=== PATIENT | male | born 1960 | race Caucasian/White ===

== ENCOUNTER 2017-07-26 06:57 | Emergency (ER) | payer MEDICAID ==
[2017-07-26 07:03] VITALS: BP 120/78; PULSE 88; RESP 18; TEMP 97.3; O2SAT 97
--- NOTE | 2017-07-26 07:15 | EDPHY ---
H & P Stated Complaint: ruq abd pain HPI/ROS: CHIEF COMPLAINT: Right upper quadrant pain HISTORY OF PRESENT ILLNESS: This patient is a homeless 57 y/o male with history of alcoholic cirrhosis complaining of right upper quadrant abdominal pain worsening over the last two days. He has had similar pain in the past due to alcohol binges and cirrhosis. He states he drinks about five pints of alcohol per day, and his last drink around 30 minutes prior to arrival. He states he is interested in stopping drinking. His pain is particularly bad today, and he has been vomiting. He has been treated for trench foot in the past, and endorses a recurrence of this. He denies cough, fever, diarrhea, chest pain, shortness of breath, or other associated symptoms. REVIEW OF SYSTEMS: A 10 point review of systems was performed and is negative with the exception of the elements mentioned in the history of present illness. - Personal History Current Tetanus/Diphtheria Vaccine: Yes Tetanus Vaccine Date: 2012 - Medical/Surgical History PMH: 1. Hepatitis C 2. Alcoholic cirrhosis 3. Alcohol abuse 4. Pancreatitis 5. BPH 6. Bipolar disorder 7. History of blood clots Hx Asthma: No Hx Chronic Respiratory Disease: No Hx Diabetes: No Hx Cardiac Disease: No Hx Renal Disease: No Hx Cirrhosis: Yes Hx Alcoholism: Yes Hx HIV/AIDS: No Hx Splenectomy or Spleen Trauma: No Other PMH: hep c, polyps removed, bipolar, CHI, ETOH, lupus, urinary & bowel incontinence, neck pain, hx blood clots, pancreatitis, BPH - Social History Smoking Status: Never smoked Additional Social History: Transient. Daily alcohol use. Nonsmoker. - Physical Exam Exam: General Appearance: Alert, no distress Eyes: Pupils equal and round, no conjunctival pallor or injection ENT, Mouth: Mucous membranes moist Neck: Normal inspection Respiratory: Lungs are clear to auscultation Cardiovascular: Regular rate and rhythm Gastrointestinal: Right upper quadrant tenderness. Abdomen is soft. Neurological: A&O, nonfocal, normal gait Skin: Warm and dry, no rash Extremities: Toes erythematous bilaterally, a few scabbed over lesions. Capillary refill normal. No cellulitis or necrosis. Psychiatric: Mood and affect normal Constitutional: Initial Vital Signs Temperature (C) 36.3 C 07/26/17 07:00 Heart Rate 88 07/26/17 07:00 Respiratory Rate 18 07/26/17 07:00 Blood Pressure 120/78 07/26/17 07:00 O2 Sat (%) 97 07/26/17 07:00 O2 Delivery Mode Room Air Allergies/Adverse Reactions: morphine Allergy (Verified 07/26/17 06:59) iv contrast dye Allergy (Uncoded 03/06/14 02:54) pnuemonia vaccine Allergy (Uncoded 03/06/14 02:54) Home Medications: Medication Instructions Recorded Flomax 0.4 MG (RX) 02/06/14 Pancreaze 4.2 02/06/14 Naproxen 03/05/14 Percocet 5/325 (RX) 03/05/14 Medical Decision Making ED Course/Re-evaluation: 57 y/o male with history of alcoholic cirrhosis presents with two day history of worsening right upper quadrant abdominal pain and associated vomiting. Likely secondary to recent alcohol binge and cirrhosis. Exam reveals right upper quadrant tenderness. IV established. Plan for labs including CBC, BMP, liver, lipase, and EtOH. Administered 1L IV NS. Old medical record reviewed. Right upper quadrant ultrasound in October 2013 revealed gallbladder sludge, no cholelithiasis. 915: Reassessed. The patient is comfortably sleeping and is easily aroused. Laboratory results discussed with the patient. Abdominal exam remains benign. Patient encouraged to stop drinking alcohol. Toradol 15 mg IV given. The patient has expressed interest in alcohol recovery. Plan to discharge to the [facility] in good condition. Differential Diagnosis: Differential diagnosis includes though it is not limited to appendicitis, cholecystitis, diverticulitis, pyelonephritis, bowel perforation, small bowel obstruction. - Data Points Laboratory Results: Laboratory Results 07/26/17 07:46 07/26/17 07:46 07/26/17 07/26/17 07:46 07:46 WBC 7.76 10^3/uL 10^3/uL (3.80-9.50) RBC 4.44 10^6/uL 10^6/uL (4.40-6.38) Hgb 14.9 g/dL g/dL (13.7-17.5) Hct 40.0 % % (40.0-51.0) MCV 90.1 fL fL (81.5-99.8) MCH 33.6 pg pg (27.9-34.1) MCHC 37.3 g/dL H g/dL (32.4-36.7) RDW 13.6 % % (11.5-15.2) Plt Count 101 10^3/uL L 10^3/uL (150-400) MPV 9.1 fL fL (8.7-11.7) Neut % (Auto) 70.3 % % (39.3-74.2) Lymph % (Auto) 22.0 % % (15.0-45.0) [place] % (Auto) 6.7 % % (4.5-13.0) Eos % (Auto) 0.0 % L % (0.6-7.6) Baso % (Auto) 0.6 % % (0.3-1.7) Nucleat RBC Rel Count 0.0 % % (0.0-0.2) Absolute Neuts (auto) 5.45 10^3/uL 10^3/uL (1.70-6.50) Absolute Lymphs (auto) 1.71 10^3/uL 10^3/uL (1.00-3.00) Absolute Monos (auto) 0.52 10^3/uL 10^3/uL (0.30-0.80) Absolute Eos (auto) 0.00 10^3/uL L 10^3/uL (0.03-0.40) Absolute Basos (auto) 0.05 10^3/uL 10^3/uL (0.02-0.10) Absolute Nucleated RBC 0.00 10^3/uL 10^3/uL (0-0.01) Immature Gran % 0.4 % % (0.0-1.1) Immature Gran # 0.03 10^3/uL 10^3/uL (0.00-0.10) Sodium 142 mEq/L mEq/L (134-144) Potassium 3.4 mEq/L L mEq/L (3.5-5.2) Chloride 104 mEq/L mEq/L (97-110) Carbon Dioxide 21 mEq/l L mEq/l (22-31) Anion Gap 17 mEq/L H mEq/L (8-16) BUN 10 mg/dL mg/dL (7-23) Creatinine 0.7 mg/dL mg/dL (0.7-1.3) Estimated GFR > 60 Glucose 84 mg/dL mg/dL (70-100) Calcium 9.0 mg/dL mg/dL (8.5-10.4) Total Bilirubin 3.7 mg/dL H mg/dL (0.1-1.4) Conjugated Bilirubin 0.7 mg/dL H mg/dL (0.0-0.5) Unconjugated Bilirubin 3.0 mg/dL H mg/dL (0.0-1.1) AST 78 IU/L H IU/L (17-59) ALT 67 IU/L IU/L (21-72) Alkaline Phosphatase 93 IU/L IU/L (38-126) Total Protein 7.9 g/dL g/dL (6.3-8.2) Albumin 4.2 g/dL g/dL (3.5-5.0) Lipase 376 IU/L H IU/L (23-300) Ethyl Alcohol 259 mg/dL H mg/dL (0-10) Medications Given: Discontinued Medications Sodium Chloride (Ns) 1,000 mls @ 0 mls/hr IV EDNOW ONE; Wide Open PRN Reason: Protocol Stop: 07/26/17 07:34 Last Admin: 07/26/17 07:50 Dose: 1,000 mls Ketorolac Tromethamine (Toradol) 15 mg IVP EDNOW ONE Stop: 07/26/17 09:18 Last Admin: 07/26/17 09:22 Dose: 15 mg Departure - Departure Disposition: Home, Routine, Self-Care Clinical Impression: Alcoholism Abdominal pain Qualifiers: Abdominal location: right upper quadrant Qualified Code(s): R10.11 - Right upper quadrant pain Condition: Good Instructions: Abuse of Alcohol (ED), Abdominal Pain (ED) Additional Instructions: 1. Proceed to the [facility] for assistance in recovery from alcoholism. 2. Remember to keep your feet dry as much as possible. 3. Follow up with your primary care provider for continued evaluation. [facility] has walk-in appointments for the homeless at the following days/locations. No appointment is needed. Tuesday 8-10am @ [facility] 11AM-1PM @ [facility] Tuesday 8-10:30AM @ [facility] Tuesday 8-10 AM @ [facility] 2-4PM @ [facility] Tuesday 8-10AM @ [facility] 4. Return to the emergency department for worsening pain, uncontrollable vomiting, fever, or other worsening of condition. Referrals: [facility] 24 Hours [Outside] - As per Instructions [facility],. [Clinic] - As per Instructions Report Scribed for: Thao Rocha Report Scribed by: Luly Dixon Date of Report: 07/26/17 Time of Report: 07:14 Physician Review and Approval Statement: 07/26/17 07:14 Portions of this note were transcribed by a medical operations supervisor. I personally performed a history, physical exam, medical decision making, and confirmed accuracy of information the transcribed note.
[2017-07-26] MEDS ORDERED: NS 1,000 ML IV ONE (07:33)
[2017-07-26 07:59] LABS: % IMMATURE GRANULYOCYTES 0.4 % (0.0-1.1); ABSOLUTE IMMATURE GRANULOCYTES 0.03 10^3/uL (0.00-0.10); ADD DIFF? NO; ADD MORPH? NO; ADD SCAN? NO; ATYPICAL LYMPHOCYTE FLAG 0 (0-99); FRAGMENT RBC FLAG 0 (0-99); HEMOGLOBIN 14.9 g/dL (13.7-17.5); LEFT SHIFT FLG 0 (0-99); LIPEMIA HEMOLYSIS FLAG 90 (0-99); MEAN CELL HEMOGLOBIN 33.6 pg (27.9-34.1); MEAN CELL HEMOGLOBIN CONCENTR. 37.3 g/dL (32.4-36.7); MEAN CELL VOLUME 90.1 fL (81.5-99.8); MEAN PLATELET VOLUME 9.1 fL (8.7-11.7); PLATELET CLUMPS FLAG 20 (0-99); PLATELET COUNT 101 10^3/uL (150-400); RED BLOOD CELL COUNT 4.44 10^6/uL (4.40-6.38); RED CELL DISTRIBUTION WIDTH 13.6 % (11.5-15.2)
[2017-07-26 08:49] LABS: ALANINE AMINOTRANSFERASE 67 IU/L (21-72); ALBUMIN 4.2 g/dL (3.5-5.0); ALKALINE PHOSPHATASE 93 IU/L (38-126); ANION GAP 17 mEq/L (8-16); ASPARTATE AMINOTRANSFERASE 78 IU/L (17-59); BILIRUBIN,TOTAL 3.7 mg/dL (0.1-1.4); BILIRUBIN-CONJUGATED 0.7 mg/dL (0.0-0.5); CARBON DIOXIDE 21 mEq/l (22-31); CHLORIDE 104 mEq/L (97-110); CREATININE 0.7 mg/dL (0.7-1.3); ETHANOL SERUM 259 mg/dL (0-10); GLOMERULAR FILTRATION RATE > 60; GLUCOSE 84 mg/dL (70-100); POTASSIUM 3.4 mEq/L (3.5-5.2); SODIUM 142 mEq/L (134-144); TOTAL PROTEIN 7.9 g/dL (6.3-8.2)
[2017-07-26] MEDS ORDERED: KETOROLAC 15 MG/1 ML SDV IVP ONE (09:17)
== END 2017-07-26 09:30 | disposition home or self-care (01) ==
DX: R10.11 Right upper quadrant pain (principal); F10.20 Alcohol dependence, uncomplicated; E86.9 Volume depletion, unspecified
CPT/HCPCS: 96374; G0480; J1885

== ENCOUNTER 2018-06-18 01:00 | Emergency (ER) | payer MEDICAID ==
--- NOTE | 2018-06-18 01:20 | EDPHY ---
H & P Time Seen by Provider: 06/18/18 01:15 HPI/ROS: CHIEF COMPLAINT: " I have got scabies" HISTORY OF PRESENT ILLNESS: 58-year-old homeless male complaining of itching lesions, likely scabies. Present for several weeks. Denies pain. PHYSICAL EXAM (Prior to examination, patient consented to physical exam, hands were washed and my usual and customary physical exam procedures followed) 1) GENERAL: Well-developed, well-nourished, alert and oriented. Appears to be in no acute distress. 2) HEAD: Normocephalic 3) HEENT: sclera anicteric 4) LUNGS: Breathing comfortably. 5) SKIN: Multiple excoriated lesions all with no signs of super infection. Smoking Status: Never smoked Allergies/Adverse Reactions: morphine Allergy (Verified 07/26/17 06:59) iv contrast dye Allergy (Uncoded 03/06/14 02:54) pnuemonia vaccine Allergy (Uncoded 03/06/14 02:54) Home Medications: Medication Instructions Recorded Pantoprazole Sodium [Protonix 40mg 40 mg PO DAILY #30 tab 05/20/18 (*)] Permethrin 5% [Elimite 5%] 60 elissa TP ONCE #1 cream 06/18/18 MDM/Departure - [facility] ED Course/Re-evaluation: Patient has significant skin lesions consistent with scabies. No evidence of Mauritian scabies. No evidence of bacterial super infection. Plan will be discharge with permethrin prescription was given to him. My usual customary scabies prescriptions precautions and instructions provided. I saw this patient independently based on established practice protocols. Care of patient under supervision of secondary supervising physician Dr Bryant . - Depart Disposition: Home, Routine, Self-Care Clinical Impression: Scabies Condition: Good Instructions: Scabies (ED) Prescriptions: Permethrin 5% [Elimite 5%] 60 elissa TP ONCE #1 cream Referrals: [facility],. [Clinic] - As per Instructions
[2018-06-18] MEDS ORDERED: PERMETHRIN 5% 60 GM CREAM TP ONE (01:32)
[2018-06-18 01:49] VITALS: BP 132/74
== END 2018-06-18 01:49 | disposition home or self-care (01) ==
DX: B86 Scabies (principal); Z59.0 Homelessness

== ENCOUNTER 2018-06-23 12:42 | Emergency (ER) | payer MEDICAID ==
--- NOTE | 2018-06-23 13:12 | CPEKG ---
Test Reason : OPEN Blood Pressure : / mmHG Vent. Rate : 067 BPM Atrial Rate : 067 BPM P-R Int : 164 ms QRS Dur : 110 ms QT Int : 452 ms P-R-T Axes : 000 074 050 degrees QTc Int : 478 ms Sinus rhythm Borderline prolonged QT interval Confirmed by Selvin Roldan ([id number]) on 06/23/2018 1:11:39 PM Referred By: Confirmed By:Selvin Roldan
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
[2018-06-23 14:02] LABS: PLATELET COUNT 76 10^3/uL (150-400)
[2018-06-23] MEDS ORDERED: methylPREDNISolone SOD SUCC 125 MG/2 ML VIAL IVP ONE (15:18)
[2018-06-23] MEDS ORDERED: IOPAMIDOL (ISOVUE 370) 100 ML BTL IV ONE (16:28)
[2018-06-23 17:59] VITALS: BP 123/76
== END 2018-06-23 18:21 | disposition home or self-care (01) ==
LOC: EDUNIT#
DX: R07.9 Chest pain, unspecified (principal); V18.1XXA Pedal cycle passenger injured in noncollision transport accident in nontraffic accident, initial encounter; F10.129 Alcohol abuse with intoxication, unspecified
CPT/HCPCS: 84484-PO; 96374; J1200; J2930; Q9967

== ENCOUNTER 2018-06-29 23:59 | Emergency (ER) | payer MEDICAID ==
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
[2018-06-30] MEDS ORDERED: CHLORDIAZEPOXIDE 25MG PREPK#6 BTL TAKEHOME ONE (07:10)
[2018-06-30 07:21] VITALS: BP 136/86
== END 2018-06-30 07:19 | disposition home or self-care (01) ==
LOC: EDBD → EDUNIT#
DX: F10.929 Alcohol use, unspecified with intoxication, unspecified (principal); S09.90XA Unspecified injury of head, initial encounter; Z59.0 Homelessness

== ENCOUNTER 2018-08-03 02:02 | Emergency (ER) | payer MEDICAID ==
--- NOTE | 2018-08-03 02:04 | EDPHY ---
H & P Time Seen by Provider: 08/03/18 02:04 HPI/ROS: HPI CHIEF COMPLAINT: Alcohol intoxication, abdominal pain HISTORY OF PRESENT ILLNESS: 58-year-old male, homeless with daily alcohol use and alcoholism, presents emergency room highly intoxicated with alcohol with abdominal pain. The patient was picked up by EMS and was going to go to the detox center for acute alcohol intoxication and being outside however he started complaining abdominal pain was brought to the emergency room. Upon arrival to the emergency room he is intoxicated with alcohol and does complain of right upper quadrant abdominal pain. He denies any chest pain shortness of breath. He denies vomiting or diarrhea. Denies fever. Patient reports to me drank 5 pt of alcohol. Past Medical History: History of alcoholism daily alcohol use and homelessness. Past Surgical History: No recent surgery Social History: Daily alcohol use. Family History: Noncontributory. ROS REVIEW OF SYSTEMS: 10 Systems were reviewed and negative with the exception of the elements mentioned in the history of present illness. Exam Constitutional intoxicated, smells of alcohol, triage nursing summary reviewed , vital signs reviewed, awake/alert. Eyes normal conjunctivae and sclera, EOMI, PERRLA. Horizontal beating nystagmus consistent acute alcohol intoxication HENT normal inspection, atraumatic, moist mucus membranes, no epistaxis, neck supple/ no meningismus, no raccoon eyes. Respiratory clear to auscultation bilaterally, normal breath sounds, no respiratory distress, no wheezing. Cardiovascular rate normal, regular rhythm, no murmur, no edema, distal pulses normal. Gastrointestinal mild tender palpation epigastric right upper quadrant, no rebound, no guarding, normal bowel sounds, no distension, no pulsatile mass. Genitourinary no CVA tenderness. Musculoskeletal no midline vertebral tenderness, full range of motion, no calf swelling, no tenderness of extremities, no meningismus, good pulses, neurovascularly intact. Skin pink, warm, & dry, no rash, skin atraumatic. Neurologic awake, alert and oriented x 3, AAOx3, moves all 4 extremities equally, motor intact, sensory intact, CN II-XII intact, normal cerebellar, normal vision, slurring his speech Psychiatric normal mood/affect. Heme/Lymph/Immune no lymphadenopathy. Differential diagnosis includes but is not limited to and in no particular order : Alcohol intoxication, alcohol-induced pancreatitis, alcohol-induced hepatitis , alcohol-induced gastritis Bowel obstruction, appendicitis, gallbladder disease, diverticulitis, colitis, enteritis, perforated viscus, gastritis, GERD , esophagitis, urinary tract infection, pyelonephritis, kidney stones Medical Decision Making: Plan for this patient IV establishment IV fluid bolus , check serum alcohol level, abdominal labs, lipase, LFTs. Re-evaluate. Re-evaluation: Lipase 493. Serum alcohol level 334. 0526: Patient re-evaluated this time. Abdomen remained soft nontender. He is not vomiting. He has been sleeping here for multiple hours. His alcohol level was noted to be 334. He is now sober. He is ambulatory. Stable gait. He is safe for discharge. Lab work reviewed. Lipase was slightly elevated. LFTs were slightly elevated consistent with acute alcoholism. Highly recommend the patient refrain from drinking alcohol. Return precautions discussed with me understands return emergency room if develops worsening abdominal pain, fever, vomiting. He feels comfortable discharge planning. Abdomen soft. Not vomiting. Sober. Source: Patient, EMS - Personal History Tetanus Vaccine Date: 2012 - Medical/Surgical History Hx Asthma: No Hx Chronic Respiratory Disease: No Hx Diabetes: No Hx Cardiac Disease: No Hx Renal Disease: No Hx Cirrhosis: Yes Hx Alcoholism: Yes Hx HIV/AIDS: No Hx Splenectomy or Spleen Trauma: No Other PMH: hep c, polyps removed, bipolar, CHI, ETOH, lupus, urinary & bowel incontinence, neck pain, hx blood clots, pancreatitis, BPH, Scabies - Social History Smoking Status: Never smoked Constitutional: Initial Vital Signs Temperature (C) 36.6 C 08/03/18 02:05 Heart Rate 83 08/03/18 02:05 Respiratory Rate 18 08/03/18 02:05 Blood Pressure 129/85 H 08/03/18 02:05 O2 Sat (%) 95 08/03/18 02:05 O2 Delivery Mode Room Air Allergies/Adverse Reactions: Iodinated Contrast- Oral and IV Dye Allergy (Verified 08/03/18 02:04) morphine Allergy (Verified 08/03/18 02:04) pneumococcal vaccine Allergy (Verified 08/03/18 02:04) Home Medications: Medication Instructions Recorded Pantoprazole Sodium [Protonix 40mg 40 mg PO DAILY #30 tab 05/20/18 (*)] Permethrin 5% [Elimite 5%] 60 elissa TP ONCE #1 cream 06/18/18 Medical Decision Making - Data Points Laboratory Results: Laboratory Results 08/03/18 02:10 08/03/18 02:10 08/03/18 08/03/18 02:10 02:10 WBC 4.14 10^3/uL 10^3/uL (3.80-9.50) RBC 3.85 10^6/uL L 10^6/uL (4.40-6.38) Hgb 13.0 g/dL L g/dL (13.7-17.5) Hct 36.8 % L % (40.0-51.0) MCV 95.6 fL fL (81.5-99.8) MCH 33.8 pg pg (27.9-34.1) MCHC 35.3 g/dL g/dL (32.4-36.7) RDW 12.7 % % (11.5-15.2) Plt Count 132 10^3/uL L 10^3/uL (150-400) MPV 8.2 fL L fL (8.7-11.7) Neut % (Auto) 41.6 % % (39.3-74.2) Lymph % (Auto) 43.7 % % (15.0-45.0) [place] % (Auto) 12.8 % % (4.5-13.0) Eos % (Auto) 0.0 % L % (0.6-7.6) Baso % (Auto) 1.4 % % (0.3-1.7) Nucleat RBC Rel Count 0.0 % % (0.0-0.2) Absolute Neuts (auto) 1.72 10^3/uL 10^3/uL (1.70-6.50) Absolute Lymphs (auto) 1.81 10^3/uL 10^3/uL (1.00-3.00) Absolute Monos (auto) 0.53 10^3/uL 10^3/uL (0.30-0.80) Absolute Eos (auto) 0.00 10^3/uL L 10^3/uL (0.03-0.40) Absolute Basos (auto) 0.06 10^3/uL 10^3/uL (0.02-0.10) Absolute Nucleated RBC 0.00 10^3/uL 10^3/uL (0-0.01) Immature Gran % 0.5 % % (0.0-1.1) Immature Gran # 0.02 10^3/uL 10^3/uL (0.00-0.10) Sodium 145 mEq/L mEq/L (135-145) Potassium 3.6 mEq/L mEq/L (3.3-5.0) Chloride 108 mEq/L mEq/L (97-110) Carbon Dioxide 24 mEq/l mEq/l (22-31) Anion Gap 13 mEq/L mEq/L (6-14) BUN 10 mg/dL mg/dL (7-23) Creatinine 0.8 mg/dL mg/dL (0.7-1.3) Estimated GFR > 60 Glucose 114 mg/dL H mg/dL (70-100) Calcium 9.1 mg/dL mg/dL (8.5-10.4) Total Bilirubin 1.0 mg/dL mg/dL (0.1-1.4) Conjugated Bilirubin 0.3 mg/dL mg/dL (0.0-0.5) Unconjugated Bilirubin 0.7 mg/dL mg/dL (0.0-1.1) AST 194 IU/L H IU/L (17-59) ALT 128 IU/L H IU/L (21-72) Alkaline Phosphatase 104 IU/L IU/L (38-126) Total Protein 7.6 g/dL g/dL (6.3-8.2) Albumin 3.9 g/dL g/dL (3.5-5.0) Lipase 493 IU/L H IU/L (23-300) Ethyl Alcohol 334 mg/dL H mg/dL (0-10) Medications Given: Discontinued Medications Sodium Chloride (Ns) 1,000 mls @ 0 mls/hr IV EDNOW ONE; Wide Open PRN Reason: Protocol Stop: 08/03/18 02:07 Last Admin: 08/03/18 02:12 Dose: 1,000 mls Departure - Departure Disposition: Home, Routine, Self-Care Clinical Impression: Alcohol intoxication Qualifiers: Complication of substance-induced condition: uncomplicated Qualified Code(s): F10.920 - Alcohol use, unspecified with intoxication, uncomplicated Condition: Good Instructions: Alcohol Intoxication (ED), Abuse of Alcohol (ED) Referrals: NONE *PRIMARY CARE P,. [Primary Care Provider] - As per Instructions
[2018-08-03] MEDS ORDERED: NS 1,000 ML IV ONE (02:06)
[2018-08-03 02:18] LABS: PLATELET COUNT 132 10^3/uL (150-400)
[2018-08-03 05:47] VITALS: BP 132/73
== END 2018-08-03 05:47 | disposition home or self-care (01) ==
LOC: EDUNIT#
DX: F10.920 Alcohol use, unspecified with intoxication, uncomplicated (principal); R10.9 Unspecified abdominal pain; E86.9 Volume depletion, unspecified
CPT/HCPCS: G0480

== ENCOUNTER 2018-08-07 04:35 | Emergency (ER) | payer MEDICAID ==
[2018-08-07] MEDS ORDERED: NS 1,000 ML IV ONE (04:43)
[2018-08-07] MEDS ORDERED: FAMOTIDINE 20 MG/2 ML SDV IVP ONE (04:43)
--- NOTE | 2018-08-07 04:46 | EDPHY ---
H & P Stated Complaint: abd pain Time Seen by Provider: 08/07/18 04:44 HPI/ROS: Chief Complaint: Abdominal pain HPI: 58-year-old homeless alcoholic male presenting complaining of upper epigastric and right upper abdominal pain. Patient states the pain began couple of hours ago. He did admits to drinking at least 2 pt of hard liquor. It is similar to pain he has had the past. He was seen here 4 days ago with similar symptoms. He does have a history of cirrhosis, pancreatitis, and lupus. Denies chest pain. Denies fevers or chills. No vomiting. No dark black bowel movements. ROS: 10 systems were reviewed and were negative except those elements noted in the HPI. PMH: Alcoholic hepatitis, pancreatitis, lupus Social History: Positive smoking, positive daily heavy alcohol, homeless Family History: non-contributory Physical Exam: Gen: Awake, Alert, No Distress HEENT: Nose: no rhinorrhea Eyes: PERRLA, EOMI Mouth: Moist mucosa Neck: Supple, no JVD Chest: nontender, lungs clear to auscultation Heart: S1, S2 normal, no murmur Abd: Soft, mild epigastric tenderness, no guarding, no peritoneal signs Back: no CVA tenderness, no midline tenderness Ext: no edema, non-tender Skin: no rash Neuro: CN II-XII intact, Sensation grossly intact, Strength 5/5 in bilateral upper and lower extremities - Personal History Current Tetanus/Diphtheria Vaccine: Yes Current Tetanus Diphtheria and Acellular Pertussis (TDAP): Yes Tetanus Vaccine Date: 2012 - Medical/Surgical History Hx Asthma: No Hx Chronic Respiratory Disease: No Hx Diabetes: No Hx Cardiac Disease: No Hx Renal Disease: No Hx Cirrhosis: Yes Hx Alcoholism: Yes Hx HIV/AIDS: No Hx Splenectomy or Spleen Trauma: No Other PMH: hep c, polyps removed, bipolar, CHI, ETOH, lupus, urinary & bowel incontinence, neck pain, hx blood clots, pancreatitis, BPH, Scabies - Social History Smoking Status: Never smoked Constitutional: Initial Vital Signs Temperature (C) 36.5 C 08/07/18 04:35 Heart Rate 74 08/07/18 04:35 Respiratory Rate 16 08/07/18 04:35 Blood Pressure 150/99 H 08/07/18 04:35 O2 Sat (%) 97 08/07/18 04:35 O2 Delivery Mode Room Air Allergies/Adverse Reactions: Iodinated Contrast- Oral and IV Dye Allergy (Verified 08/07/18 04:43) morphine Allergy (Verified 08/07/18 04:43) pneumococcal vaccine Allergy (Verified 08/07/18 04:43) Home Medications: Medication Instructions Recorded Pantoprazole Sodium [Protonix 40mg 40 mg PO DAILY #30 tab 05/20/18 (*)] Permethrin 5% [Elimite 5%] 60 elissa TP ONCE #1 cream 06/18/18 Abx 08/07/18 Librium 10 mg (RX) 08/07/18 Medical Decision Making ED Course/Re-evaluation: 58-year-old male presents with recurrent upper abdominal pain. History of cirrhosis and pancreatitis. His abdomen is soft and benign. His lipase is mildly elevated. His LFTs are consistent with his chronic alcohol abuse. He has no peritoneal signs. Certainly no surgical process. His white count is normal. Patient was given Pepcid and a GI cocktail. I have counseled him that the way to make his pain status. Is to stop drinking alcohol. Will refer him to [facility]. - Data Points Laboratory Results: Laboratory Results 08/07/18 04:45 08/07/18 04:45 08/07/18 08/07/18 04:45 04:45 WBC 3.93 10^3/uL 10^3/uL (3.80-9.50) RBC 4.12 10^6/uL L 10^6/uL (4.40-6.38) Hgb 13.9 g/dL g/dL (13.7-17.5) Hct 38.7 % L % (40.0-51.0) MCV 93.9 fL fL (81.5-99.8) MCH 33.7 pg pg (27.9-34.1) MCHC 35.9 g/dL g/dL (32.4-36.7) RDW 12.2 % % (11.5-15.2) Plt Count 187 10^3/uL 10^3/uL (150-400) MPV 8.9 fL fL (8.7-11.7) Neut % (Auto) Pending Lymph % (Auto) Pending Burt % (Auto) Pending Eos % (Auto) Pending Baso % (Auto) Pending Nucleat RBC Rel Count Pending Absolute Neuts (auto) Pending Absolute Lymphs (auto) Pending Absolute Monos (auto) Pending Absolute Eos (auto) Pending Absolute Basos (auto) Pending Absolute Nucleated RBC Pending Immature Gran % Pending Immature Gran # Pending Platelet Estimate Pending Sodium 143 mEq/L mEq/L (135-145) Potassium 4.7 mEq/L mEq/L (3.3-5.0) Chloride 106 mEq/L mEq/L (97-110) Carbon Dioxide 24 mEq/l mEq/l (22-31) Anion Gap 13 mEq/L mEq/L (6-14) BUN 17 mg/dL mg/dL (7-23) Creatinine 1.1 mg/dL mg/dL (0.7-1.3) Estimated GFR > 60 Glucose 82 mg/dL mg/dL (70-100) Calcium 9.4 mg/dL mg/dL (8.5-10.4) Total Bilirubin 1.4 mg/dL mg/dL (0.1-1.4) AST 151 IU/L H IU/L (17-59) ALT 102 IU/L H IU/L (21-72) Alkaline Phosphatase 104 IU/L IU/L (38-126) Total Protein 8.4 g/dL H g/dL (6.3-8.2) Albumin 4.3 g/dL g/dL (3.5-5.0) Lipase 501 IU/L H IU/L (23-300) Medications Given: Discontinued Medications Famotidine (Pepcid) 20 mg IVP EDNOW ONE Stop: 08/07/18 04:44 Last Admin: 08/07/18 04:49 Dose: 20 mg Sodium Chloride (Ns) 1,000 mls @ 0 mls/hr IV ONCE ONE; Wide Open PRN Reason: Protocol Stop: 08/07/18 04:44 Last Admin: 08/07/18 04:49 Dose: 1,000 mls Departure - Departure Disposition: Home, Routine, Self-Care Clinical Impression: Alcoholic gastritis Condition: Good Instructions: Gastritis (ED), Abuse of Alcohol (ED), Alcohol Use Disorder (ED) Additional Instructions: Please seek help to discontinue drinking alcohol. Follow up with [facility] in 2-3 days for further evaluation. Referrals: [facility],. [Clinic] - As per Instructions [facility] Hours [Outside] - As per Instructions
[2018-08-07 04:58] LABS: PLATELET COUNT 187 10^3/uL (150-400)
[2018-08-07] MEDS ORDERED: MAG HYDROX/AL HYDROX/SIMETH 30 ML UDCUP PO ONE (05:22)
[2018-08-07] MEDS ORDERED: LIDOCAINE 2% VISCOUS 15 ML UDCUP PO ONE (05:22)
[2018-08-07 05:38] VITALS: BP 119/85
== END 2018-08-07 06:12 | disposition home or self-care (01) ==
LOC: EDUNIT#
DX: K29.00 Acute gastritis without bleeding (principal); E86.9 Volume depletion, unspecified; F17.200 Nicotine dependence, unspecified, uncomplicated; Z59.0 Homelessness
CPT/HCPCS: 96374

== ENCOUNTER 2018-08-10 21:23 | Inpatient (IN) | payer MEDICAID ==
[2018-08-10] MEDS ORDERED: NS 1,000 ML IV ONE (21:25)
[2018-08-10 21:43] LABS: PLATELET COUNT 230 10^3/uL (150-400)
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
[2018-08-10] MEDS ORDERED: FLUMAZENIL 0.5 MG/5 ML MDV IVP PRN (23:07)
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
[2018-08-11 00:56] LABS: INR 1.18 (0.83-1.16); PROTIME(PATIENT) 15.2 SEC (12.0-15.0)
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
[2018-08-11] MEDS ORDERED: ACETAMINOPHEN 325 MG TAB PO ONE (01:24)
[2018-08-11] MEDS ORDERED: HYDROmorphONE/DILAUDID 1 MG/ML INJ IVP PRN (01:26)
[2018-08-11] MEDS: LORazepam 2 MG/ML INJ IVP PRN ×3 (01:57→17:30)
[2018-08-11] MEDS: THIAMINE HCL 100 MG TAB PO SCH ×2 (01:58→08:28)
[2018-08-11] MEDS: oxyCODONE IR 5 MG TAB PO PRN ×5 (01:58→20:37)
[2018-08-11] MEDS: D5W 1/2 NS 1,000 ML IV SCH ×2 (01:59→11:30)
--- NOTE | 2018-08-11 08:09 | ASMTLACE ---
AIDEN Acuity / Level of Answers: Yes Care: Did the patient have an inpatient admission? Comorbidities - select Answers: Opioid dependence all that apply / Chronic pain Other Notes: Pancreatitis; Lupus; He p C # of Emergency department Answers: 9-12 visits in the last 6 months Social determinants Answers: History of substance abuse (ETOH, street drugs, prescription drugs, etc.) Homelessness (street, senior care) Mental health diagnosis (anxiety, depression, pers onality disorders, etc.) Score: 22 Date Signed: 08/11/2018 08:08 AM Electronically Signed By:Verónica Espinoza
[2018-08-11] MEDS: FOLIC ACID 1 MG TAB PO SCH (08:29)
[2018-08-11] MEDS: MULTIVITAMINS 1 EACH TAB PO SCH (08:29)
[2018-08-11] MEDS: ENOXAPARIN 40 MG/0.4 ML SYR SC SCH (08:30)
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
--- NOTE | 2018-08-11 15:41 | ASMTCMCOM ---
CM Note CM Note Notes: Pt's surgeon needs to wait a week before operating. Pt can be in a SNF while awaiting surgery and then return to the SNF for rehab following surgery. Both [facility] and [facility] have expressed interest and they have both been given this information. Surgeon's phone number is taped into cover of chart. CM to follow. D/C Plan: SNF/Rehab Date Signed: 08/11/2018 03:40 PM Electronically Signed By:Clemencia Petersen
[2018-08-11] MEDS: hydrOXYzine HCL 25 MG TAB PO PRN (16:18)
[2018-08-12] MEDS: oxyCODONE IR 5 MG TAB PO PRN ×6 (00:36→20:32)
[2018-08-12] MEDS: hydrOXYzine HCL 25 MG TAB PO PRN ×2 (00:36→10:04)
[2018-08-12] MEDS ORDERED: ACETAMINOPHEN 500 MG TAB PO PRN (06:42)
[2018-08-12] MEDS: D5W 1/2 NS 1,000 ML IV SCH (08:11)
[2018-08-12] MEDS: MULTIVITAMINS 1 EACH TAB PO SCH (08:11)
[2018-08-12] MEDS: FOLIC ACID 1 MG TAB PO SCH (08:12)
[2018-08-12] MEDS: THIAMINE HCL 100 MG TAB PO SCH (08:12)
[2018-08-12] MEDS: HYDROCODONE/APAP 5/325 TAB PO PRN (08:12)
[2018-08-12] MEDS: ENOXAPARIN 40 MG/0.4 ML SYR SC SCH (08:13)
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
[2018-08-12] MEDS: LORazepam 2 MG/ML INJ IVP PRN (18:06)
[2018-08-13] MEDS: hydrOXYzine HCL 25 MG TAB PO PRN ×3 (02:55→20:28)
[2018-08-13] MEDS: oxyCODONE IR 5 MG TAB PO PRN ×2 (02:55→08:45)
[2018-08-13] MEDS: THIAMINE HCL 100 MG TAB PO SCH (08:44)
[2018-08-13] MEDS: MULTIVITAMINS 1 EACH TAB PO SCH (08:44)
[2018-08-13] MEDS: FOLIC ACID 1 MG TAB PO SCH (08:45)
[2018-08-13] MEDS: ENOXAPARIN 40 MG/0.4 ML SYR SC SCH (08:51)
[2018-08-13] MEDS: LORazepam 2 MG/ML INJ IVP PRN (09:06)
[2018-08-13] MEDS: HYDROCODONE/APAP 5/325 TAB PO PRN ×3 (11:26→22:55)
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
[2018-08-14 02:51] LABS: HEPATITIS A ANTIBODY IGM (BCH) NEGATIVE (NEGATIVE); HEPATITIS B CORE AB IGM NEGATIVE (NEGATIVE); HEPATITIS B SURFACE ANTIGEN NEGATIVE (NEGATIVE)
[2018-08-14 03:04] LABS: HEPATITIS C ANTIBODY TOTAL REACTIVE (NEGATIVE)
[2018-08-14] MEDS: THIAMINE HCL 100 MG TAB PO SCH (09:48)
[2018-08-14] MEDS: FOLIC ACID 1 MG TAB PO SCH (09:48)
[2018-08-14] MEDS: MULTIVITAMINS 1 EACH TAB PO SCH (09:48)
[2018-08-14] MEDS: hydrOXYzine HCL 25 MG TAB PO PRN ×3 (09:48→21:11)
[2018-08-14] MEDS: HYDROCODONE/APAP 5/325 TAB PO PRN ×3 (09:48→21:11)
[2018-08-14] MEDS: ENOXAPARIN 40 MG/0.4 ML SYR SC SCH (09:49)
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
--- NOTE | 2018-08-14 15:40 | ASMTCMCOM ---
CM Note CM Note Notes: Pts case discussed w/ GUILLERMO Charles. Kerri from [facility] came and assessed pt. She has approved pt for SNF. Additional referrals sent to SNFs. Jam from [facility] came and assessed pt. Jam will need to speak to his administers before accepting. CM to follow. Plan: SNF Date Signed: 08/14/2018 03:39 PM Electronically Signed By:EDOUARD Mina
[2018-08-15] MEDS ORDERED: traMADol 50 MG TAB PO PRN (00:04)
[2018-08-15] MEDS: LORazepam 2 MG/ML INJ IVP PRN (01:21)
[2018-08-15] MEDS: hydrOXYzine HCL 25 MG TAB PO PRN ×3 (05:19→15:47)
[2018-08-15] MEDS: HYDROCODONE/APAP 5/325 TAB PO PRN (05:21)
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
[2018-08-15] MEDS: THIAMINE HCL 100 MG TAB PO SCH (08:38)
[2018-08-15] MEDS: MULTIVITAMINS 1 EACH TAB PO SCH (08:38)
[2018-08-15] MEDS: FOLIC ACID 1 MG TAB PO SCH (08:38)
[2018-08-15] MEDS: IBUPROFEN 200 MG TAB PO PRN ×2 (08:41→15:46)
[2018-08-15] MEDS: ENOXAPARIN 40 MG/0.4 ML SYR SC SCH (08:57)
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
[2018-08-15] MEDS: traMADol 50 MG TAB PO PRN ×2 (10:36→15:47)
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
--- NOTE | 2018-08-15 12:06 | ASMTCMCOM ---
CM Note CM Note Notes: Spoke with Luis Boyle NP who states Dr. Hurley has moved patient's surgery to this . Depending on patient being weightbearing or nonweightbearing after surgery, will increase or decrease options for discharge. We will continue to try and find placement with a SNF. There are 4 facilities that have not responded yet. CM will follow. Date Signed: 08/15/2018 12:05 PM Electronically Signed By:Amanda King LCSW
[2018-08-15] MEDS: LORazepam 0.5 MG TAB PO PRN ×2 (13:33→20:30)
--- NOTE | 2018-08-15 13:40 | ASMTCMCOM ---
CM Note CM Note Notes: Spoke with Verónica with case management to request she look for a wheelchair for patient since he will be non-weightbearing for [address] Hurley's note. We will start the search now to see if there is one available for patient. CM will follow. Date Signed: 08/15/2018 01:39 PM Electronically Signed By:Amanda King LCSW
--- NOTE | 2018-08-15 16:59 | ASMTCMCOM ---
CM Note CM Note Notes: Spoke with patient's mother, Mrs. rByn Valle who lives in [place]. Patient had called her and given her misinformation as he was confused. She was grateful to get her questions answered. ([phone]). CM will follow. Date Signed: 08/15/2018 04:58 PM Electronically Signed By:Amanda King LCSW
--- NOTE | 2018-08-15 17:20 | ASMTCMCOM ---
CM Note CM Note Notes: Spoke with Dr. Hurley who has concerns about doing ankle surgery if the patient does not have a post op placement. The patient is too high risk for complications and infection which could lead to the need for amputation. Dr. Hurley is hoping we can work something out with a SNF facility to give the patient this opportunity. He does need to operate within the first 2 weeks of injury as the healing process can get too far along. Perhaps CM can talk about the individual circumstances with the SNF facilities to have them reconsider. Plan is for CM to start in the morning with SNF's we have longstanding relationships with to see if we can have them reconsider. Dr. Hurley [phone] would like to be kept in the loop. CM to notify him quickly if we find a SNF to take the patient post op. CM will follow. Date Signed: 08/15/2018 05:19 PM Electronically Signed By:Amanda King LCSW
[2018-08-16] MEDS: IBUPROFEN 200 MG TAB PO PRN (04:45)
[2018-08-16] MEDS: traMADol 50 MG TAB PO PRN ×4 (04:46→22:49)
[2018-08-16] MEDS: LORazepam 0.5 MG TAB PO PRN ×2 (07:42→17:44)
[2018-08-16] MEDS: MULTIVITAMINS 1 EACH TAB PO SCH (09:00)
[2018-08-16] MEDS: FOLIC ACID 1 MG TAB PO SCH (09:00)
[2018-08-16] MEDS: THIAMINE HCL 100 MG TAB PO SCH (09:00)
[2018-08-16] MEDS: ENOXAPARIN 40 MG/0.4 ML SYR SC SCH (09:01)
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
--- NOTE | 2018-08-16 16:13 | ASMTCMCOM ---
CM Note CM Note Notes: Met with patient today to discuss disposition plan. Previously, patient was resistant to the idea of respite at the [facility] in [place]. Today, he was amendable. I spoke with Liza Dejan at the [facility] #[phone]. Per Liza, there is currently a wait list with ten people - this is common for this time of year. Liza was willing to accept application and start a back-ground check. Application completed and faxed to .. #[phone]. Also discussed case with [facility] who will see patient when they are on site next. Patient is still agreeable to SNF. Sent referrals to three more today - [facility], declined. Waiting to hear back from [facility] and [facility]. Discussed case with Lee Ann Boyle. CM will continue to work on safe and reasonable discharge plan. Plan: TBD Date Signed: 08/16/2018 04:12 PM Electronically Signed By:Tammy Gaines RN
[2018-08-16] MEDS: hydrOXYzine HCL 25 MG TAB PO PRN ×2 (17:46→22:49)
[2018-08-16] MEDS: LORazepam 2 MG/ML INJ IVP PRN (19:56)
[2018-08-17] MEDS: LORazepam 0.5 MG TAB PO PRN ×2 (00:22→19:50)
[2018-08-17] MEDS: HYDROmorphONE/DILAUDID 1 MG/ML INJ IVP PRN ×2 (00:47→05:03)
[2018-08-17] MEDS: hydrOXYzine HCL 25 MG TAB PO PRN ×2 (04:19→19:50)
[2018-08-17] MEDS: traMADol 50 MG TAB PO PRN ×2 (04:19→09:33)
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
[2018-08-17] MEDS: THIAMINE HCL 100 MG TAB PO SCH (09:33)
[2018-08-17] MEDS: MULTIVITAMINS 1 EACH TAB PO SCH (09:33)
[2018-08-17] MEDS: ENOXAPARIN 40 MG/0.4 ML SYR SC SCH (09:33)
[2018-08-17] MEDS: FOLIC ACID 1 MG TAB PO SCH (09:33)
[2018-08-17] MEDS ORDERED: OXYCODONE/APAP 5/325 TAB PO PRN (11:02)
[2018-08-17] MEDS: ONDANSETRON DISINTEGRATING 4 MG TAB PO PRN (11:41)
[2018-08-17] MEDS ORDERED: BISACODYL 10 MG SUPP PR PRN (11:56)
[2018-08-17] MEDS ORDERED: LACTULOSE 20 GM/30 ML UDCUP PO PRN (11:56)
[2018-08-17] MEDS ORDERED: MAGNESIUM HYDROXIDE 30 ML UDCUP PO PRN (11:56)
[2018-08-17] MEDS: POLYETHYLENE GLYCOL 3350 17 GM PKT PO SCH (12:07)
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
[2018-08-17] MEDS: HYDROCODONE/APAP 5/325 TAB PO PRN ×2 (16:16→20:32)
[2018-08-17] MEDS: GABAPENTIN 100 MG CAP PO SCH ×2 (16:16→21:19)
[2018-08-17] MEDS: CYCLOBENZAPRINE 10 MG TAB PO PRN ×2 (16:16→20:32)
[2018-08-17] MEDS: SENNOSIDES/DOCUSATE SODIUM TAB PO SCH (21:19)
[2018-08-17] MEDS ORDERED: LORazepam 1 MG TAB PO ONE (22:54)
[2018-08-17] MEDS: IBUPROFEN 200 MG TAB PO PRN (22:58)
[2018-08-18] MEDS: LORazepam 0.5 MG TAB PO PRN ×4 (00:31→23:59)
[2018-08-18] MEDS: HYDROCODONE/APAP 5/325 TAB PO PRN ×6 (00:32→23:59)
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
[2018-08-18] MEDS: MULTIVITAMINS 1 EACH TAB PO SCH (10:15)
[2018-08-18] MEDS: FOLIC ACID 1 MG TAB PO SCH (10:24)
[2018-08-18] MEDS: IBUPROFEN 200 MG TAB PO PRN ×2 (10:24→16:19)
[2018-08-18] MEDS: THIAMINE HCL 100 MG TAB PO SCH (10:24)
[2018-08-18] MEDS: GABAPENTIN 100 MG CAP PO SCH ×4 (10:24→21:03)
[2018-08-18] MEDS: ENOXAPARIN 40 MG/0.4 ML SYR SC SCH (10:26)
[2018-08-18] MEDS: SENNOSIDES/DOCUSATE SODIUM TAB PO SCH ×2 (10:56→20:36)
[2018-08-18] MEDS: POLYETHYLENE GLYCOL 3350 17 GM PKT PO SCH (10:56)
--- NOTE | 2018-08-18 16:48 | ASMTCMCOM ---
CM Note CM Note Notes: Spoke w/Dr Hurley, pt will have surgery on Tuesday to repair ankle. He will need to be non weight bearing for 6 weeks, ULTC done and [facility] notified but so far no SNF has accepted. [facility], will likely not here from them until next week. DC Plan: TBD Date Signed: 08/18/2018 04:48 PM Electronically Signed By:Missy Singletary RN
[2018-08-18] MEDS: hydrOXYzine HCL 25 MG TAB PO PRN (19:45)
[2018-08-18] MEDS: CYCLOBENZAPRINE 10 MG TAB PO PRN (19:45)
[2018-08-19] MEDS: HYDROCODONE/APAP 5/325 TAB PO PRN ×5 (05:49→23:00)
[2018-08-19] MEDS: hydrOXYzine HCL 25 MG TAB PO PRN ×3 (05:50→23:04)
[2018-08-19] MEDS: CYCLOBENZAPRINE 10 MG TAB PO PRN ×2 (05:50→13:05)
[2018-08-19] MEDS: IBUPROFEN 200 MG TAB PO PRN (07:33)
[2018-08-19] MEDS: LORazepam 0.5 MG TAB PO PRN ×3 (07:35→23:00)
[2018-08-19] MEDS: MULTIVITAMINS 1 EACH TAB PO SCH (10:28)
[2018-08-19] MEDS: GABAPENTIN 100 MG CAP PO SCH ×3 (10:28→21:05)
[2018-08-19] MEDS: THIAMINE HCL 100 MG TAB PO SCH (10:28)
[2018-08-19] MEDS: FOLIC ACID 1 MG TAB PO SCH (10:29)
[2018-08-19] MEDS: ENOXAPARIN 40 MG/0.4 ML SYR SC SCH (10:29)
[2018-08-19] MEDS: SENNOSIDES/DOCUSATE SODIUM TAB PO SCH ×2 (10:31→21:06)
[2018-08-19] MEDS: POLYETHYLENE GLYCOL 3350 17 GM PKT PO SCH (10:31)
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
[2018-08-20] MEDS: LORazepam 0.5 MG TAB PO PRN ×5 (01:37→21:02)
[2018-08-20] MEDS: HYDROCODONE/APAP 5/325 TAB PO PRN ×5 (01:38→21:01)
[2018-08-20] MEDS: hydrOXYzine HCL 25 MG TAB PO PRN ×2 (06:38→16:05)
[2018-08-20] MEDS: GABAPENTIN 100 MG CAP PO SCH ×3 (09:51→20:56)
[2018-08-20] MEDS: THIAMINE HCL 100 MG TAB PO SCH (09:51)
[2018-08-20] MEDS: FOLIC ACID 1 MG TAB PO SCH (09:52)
[2018-08-20] MEDS: MULTIVITAMINS 1 EACH TAB PO SCH (09:52)
[2018-08-20] MEDS: ENOXAPARIN 40 MG/0.4 ML SYR SC SCH ×2 (09:52→10:27)
[2018-08-20] MEDS: SENNOSIDES/DOCUSATE SODIUM TAB PO SCH ×2 (09:53→21:30)
[2018-08-20] MEDS: POLYETHYLENE GLYCOL 3350 17 GM PKT PO SCH (09:53)
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
[2018-08-20] MEDS: CYCLOBENZAPRINE 10 MG TAB PO PRN (16:05)
[2018-08-20] MEDS: MELATONIN 3 MG TAB PO SCH (20:56)
[2018-08-20] MEDS: TEMAZEPAM 15 MG CAP PO PRN (20:56)
[2018-08-20] MEDS: NS 1,000 ML IV SCH (21:07)
[2018-08-21] MEDS: HYDROCODONE/APAP 5/325 TAB PO PRN (08:20)
[2018-08-21] MEDS: GABAPENTIN 100 MG CAP PO SCH ×3 (08:22→21:56)
[2018-08-21] MEDS: LORazepam 0.5 MG TAB PO PRN ×2 (08:22→23:41)
[2018-08-21] MEDS: CYCLOBENZAPRINE 10 MG TAB PO PRN (08:23)
[2018-08-21] MEDS: FOLIC ACID 1 MG TAB PO SCH (08:23)
[2018-08-21] MEDS: MULTIVITAMINS 1 EACH TAB PO SCH (08:23)
[2018-08-21] MEDS: THIAMINE HCL 100 MG TAB PO SCH (08:23)
[2018-08-21] MEDS: NS 1,000 ML IV SCH (08:25)
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
[2018-08-21] MEDS: POLYETHYLENE GLYCOL 3350 17 GM PKT PO SCH (10:14)
[2018-08-21] MEDS: SENNOSIDES/DOCUSATE SODIUM TAB PO SCH ×2 (10:15→21:55)
[2018-08-21] MEDS ORDERED: LR 1,000 ML IV ONE ×2 (14:55→15:18)
--- NOTE | 2018-08-21 15:39 | ASMTCMCOM ---
CM Note CM Note Notes: Patient did go for his ankle surgery. We are still looking for a SNF facility that will accept patient for rehab.CM will follow. Date Signed: 08/21/2018 03:25 PM Electronically Signed By:Amanda King LCSW
[2018-08-21] MEDS ORDERED: MIDAZOLAM 2 MG/2 ML VIAL IVP ONE (15:42)
--- NOTE | 2018-08-21 15:48 | PDANEPAE ---
ANE Past Medical History - Pulmonary History Hx Oxygen in Use at Home: No Hx Sleep Apnea: No Sleep Apnea Screening Result - Last Documented: Negative - Endocrine History Hx Diabetes: No Obesity: no - Other Health History Other Health History: Lupus, with polyarthritis - Chronic Pain History Chronic Pain: No ANE Review of Systems Review of Systems: ANE Patient History - Allergies Allergies/Adverse Reactions: morphine Allergy (Severe, Verified 08/11/18 01:31) Dyspnea Iodinated Contrast- Oral and IV Dye Allergy (Verified 08/10/18 21:36) pneumococcal vaccine Allergy (Verified 08/10/18 21:36) - Home Medications Home medications: none Home Medications: NK [No Known Home Meds] 08/10/18 [Last Taken Unknown] - NPO status NPO Status: no food or drink >8 hours NPO Since - Liquids (Date): 08/21/18 NPO Since - Liquids (Time): 00:00 NPO Since - Solids (Date): 08/20/18 NPO Since - Solids (Time): 19:00 - Anes Hx Anes Hx: no prior problems - Smoking Hx Smoking Status: Never smoked ANE Labs/Vital Signs - Labs Result Diagrams: 08/11/18 05:05 08/15/18 08:09 - Vital Signs Blood Pressure: 129/88 Heart Rate: 73 Respiratory Rate: 20 O2 Sat (%): 97 Height: 175.26 cm Weight: 79.379 kg ANE Physical Exam - Airway Neck exam: FROM Mallampati Score: Class 2 Mouth exam: normal dental/mouth exam - Pulmonary Pulmonary: no respiratory distress, no rales or rhonchi, clear to auscultation - Cardiovascular Cardiovascular: regular rate and rhythym, no murmur, rub, or gallop - ASA Status ASA Status: III ANE Anesthesia Plan Anesthesia Plan: GA w LMA
--- NOTE | 2018-08-21 15:51 | ASMTCMCOM ---
CM Note CM Note Notes: Left a message with [place] admissions regarding patient and possible placement with [facility] facility. CM will follow. Date Signed: 08/21/2018 03:51 PM Electronically Signed By:Amanda King LCSW
[2018-08-21] MEDS ORDERED: fentaNYL 250 MCG/5 ML INJ ONE (15:54)
[2018-08-21] MEDS ORDERED: ONDANSETRON 4 MG/2 ML VIAL ONE (15:55)
[2018-08-21] MEDS ORDERED: PROPOFOL 200 MG/20 ML VIAL ONE (15:55)
[2018-08-21] MEDS ORDERED: LIDOCAINE 2% JELLY 5 ML TUBE ONE (15:55)
[2018-08-21] MEDS ORDERED: DEXAMETHASONE 4 MG/ML VIAL ONE ×2 (15:56)
[2018-08-21] MEDS ORDERED: ceFAZolin 1 GM VIAL ONE ×2 (16:10)
[2018-08-21] MEDS ORDERED: LIDOCAINE 2% 5 ML SDV ONE (16:11)
[2018-08-21] MEDS ORDERED: HYDROmorphONE/DILAUDID 1 MG/ML INJ IVP PRN ×2 (16:12→19:27)
[2018-08-21] MEDS ORDERED: LIDOCAINE 1% 300 MG/30 ML SDV ONE (16:14)
[2018-08-21] MEDS ORDERED: BUPIVACAINE 0.25% 30 ML SDV ONE (16:14)
[2018-08-21] MEDS ORDERED: LABETALOL HCL 5 MG/ML 20 ML MDV ONE (16:36)
[2018-08-21] MEDS ORDERED: MEPERIDINE 25 MG/0.5 ML AMP IVP PRN (18:12)
[2018-08-21] MEDS ORDERED: HYDROmorphONE/DILAUDID 2 MG/ML INJ IVP PRN (18:12)
[2018-08-21] MEDS ORDERED: LR 500 ML IV PRN (18:12)
[2018-08-21] MEDS ORDERED: PROMETHAZINE HCL 25 MG/ML INJ IVP PRN (18:12)
[2018-08-21] MEDS ORDERED: ONDANSETRON 4 MG/2 ML VIAL IVP PRN (18:12)
[2018-08-21] MEDS ORDERED: NALOXONE HCL 0.4 MG/ML INJ IVP PRN (18:12)
[2018-08-21] MEDS ORDERED: fentaNYL 100 MCG/2 ML INJ IVP PRN (18:12)
[2018-08-21] MEDS ORDERED: BACITRACIN ZINC 14.2 GM OINTTUBE TP ONE (19:06)
--- NOTE | 2018-08-21 19:26 | POSTOPPROG ---
Post Op Note Date of Operation: 08/21/18 Surgeon: Dilip Hurley Medical Device: N/a Anesthesia: GET(General Endotracheal) Pre-op Diagnosis: Right bimalleolar ankle fracture Post-op Diagnosis: Same Procedure: ORIF Right bimalleolar ankle fracture Inf/Abcess present in the surg proc area at time of surgery?: No EBL: 50-100
--- NOTE | 2018-08-21 19:27 | POSTANESTH ---
Post Anesthetic Evaluation Cardiovascular Status: Normal, Stable, Similar to Pre-Op Cond Respiratory Status: Normal, Stable, Similar to Pre-op Cond. Level of Consciousness/Mental Status: Can Participate in Eval, Mildly Sleepy, Arousable Pain Control: Adequate, Prn Tx Ordered Nausea/Vomiting Control: Adequate, Prn Tx Ordered Complications Possibly Related to Anesthesia: None Noted
[2018-08-21] MEDS ORDERED: HYDROmorphONE/DILAUDID 2 MG/ML INJ ONE (19:33)
[2018-08-21] MEDS ORDERED: fentaNYL 100 MCG/2 ML INJ ONE (19:33)
--- NOTE | 2018-08-21 19:41 | SUROPNOTE ---
[facility] Operative Report - Surgery Orthopaedic Operative Note DOS: 07/21/2018 Attg: Dilip Hurley Asst: None Preop Dx: Right ankle bimalleolar fracture Postop Dx: Same Procedure: ORIF Right ankle bimalleolar fracture Procedure: Consent was reviewed with the patient and he elected to proceed. The patient was taken to OR and transferred to the bed. Anesthesia was induced. A nonsterile tourniquet was applied to the Right thigh A timeout was performed confirming the patient, procedure, antibiotic status, and surgical site. The leg was exsanguinated and the tourniquet raised. A lateral incision over the fibula was made. Blunt dissection was carried through the subcutaneous tissues down to the periosteal layer, taking care to identify any branches of the superficial peroneal nerve in the field. The fracture site was identified and the edges cleaned in preparation for reduction.~ The lateral talus and ankle joint space was examined and cleared of debris with irrigation. The fracture was right at the syndesmosis and fairly transverse The fibula was reduced and held with temporary instrumentation. The reduction was checked on fluoroscopy. The fracture was lagged with single 2.0mm screw fixation. An 8-hole 1/3 tubular plate was selected and placed on the fibula.~ Plate position was confirmed by fluoroscopy and the plate was affixed to the fibula with a combination of cortical screws and a cancellous screw. A medial incision was created over the medial malleolus. The fracture line was quite vertical and the incision was carried proximally in preparation for an antiglide plate. The saphenous vein and nerve were protected. The fracture site was cleaned in preparation for reduction The ankle joint was examined and any loose debris removed. The fracture was reduced and held with temporary fixation. A 2.4mm T-plate was contoured and used to hold the medial malleolus as an antiglide plate. The plate was placed beneath the neurovascular structures and secured with 2.4 and 2.7mm screws Intraoperative stress tests (Cotton and Ext Rot) under fluoroscopy was performed which demonstrated that the syndesmosis was stable Final fluoroscopic views were used to examine the fixation and ankle, and the wounds were all irrigated and closed with a combination of 2-O vicryl sutures deep and 3-O vicryl subcutaneous and the skin closed with 3-O nylon suture. The tourniquet had been released at 120 minutes. A sterile dressing was applied to the wounds and a well-padded short leg splint applied. The patient was woken from anesthesia and taken to the PACU for further observation. Count was correct at the conclusion of the case. I was present for the entirety of the case. Complications: None Implants: Synthes 2.4 and 1/3 tubular plates, 2.4/2.7/3.5 cortical screws, 4.0 cancellous screw Drains: none EBL: 75
[2018-08-21] MEDS ORDERED: oxyCODONE IR 5 MG TAB ONE ×2 (19:46→20:11)
[2018-08-21] MEDS: oxyCODONE IR 5 MG TAB PO PRN ×2 (19:50→20:14)
[2018-08-21] MEDS: MELATONIN 3 MG TAB PO SCH (21:36)
[2018-08-21] MEDS: TEMAZEPAM 15 MG CAP PO PRN (23:43)
[2018-08-22] MEDS: oxyCODONE IR 5 MG TAB PO PRN (01:51)
[2018-08-22] MEDS: IBUPROFEN 200 MG TAB PO PRN (01:52)
[2018-08-22] MEDS: ONDANSETRON DISINTEGRATING 4 MG TAB PO PRN ×2 (01:59→10:43)
[2018-08-22] MEDS: HYDROCODONE/APAP 5/325 TAB PO PRN (04:22)
[2018-08-22] MEDS: LORazepam 0.5 MG TAB PO PRN ×2 (04:28→10:42)
[2018-08-22] MEDS ORDERED: PROMETHAZINE HCL 25 MG/ML INJ ONE (05:31)
[2018-08-22] MEDS: HYDROmorphONE/DILAUDID 1 MG/ML INJ IVP PRN ×6 (05:34→22:44)
[2018-08-22] MEDS: PROMETHAZINE HCL 25 MG/ML INJ IVP PRN ×3 (05:34→18:28)
[2018-08-22] MEDS: LORazepam 2 MG/ML INJ IVP PRN ×3 (11:02→20:43)
[2018-08-22] MEDS: GABAPENTIN 100 MG CAP PO SCH ×3 (11:17→20:49)
[2018-08-22] MEDS: FOLIC ACID 1 MG TAB PO SCH (11:17)
[2018-08-22] MEDS: MULTIVITAMINS 1 EACH TAB PO SCH (11:18)
[2018-08-22] MEDS: POLYETHYLENE GLYCOL 3350 17 GM PKT PO SCH (11:19)
[2018-08-22] MEDS: THIAMINE HCL 100 MG TAB PO SCH (11:20)
[2018-08-22] MEDS: SENNOSIDES/DOCUSATE SODIUM TAB PO SCH ×2 (11:20→20:49)
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
--- NOTE | 2018-08-22 15:54 | ASMTCMCOM ---
CM Note CM Note Notes: Spoke with patient and he was amenable to returning to his mother's house in [place] for the 6 week recovery needed, non weight bearing. Patient gave me verbal permission to speak to his mother. CM contacted Jackie Valle via telephone to ask if she would be willing to take her son for the next 6 weeks. She states she is not able as she is barely able to care for herself at this time. Jackie states she broke her ankle in April and is just now able to partially get around. She states she is 80yo and wasn't able to take her when he needed care. Jackie will contact her ther children, Mehdi's siblings to see if they have ideas. The family is concerned, he will return to [place] and start drinking again. Jackie was given Dinorah's number, cm for 3E tomorrow so they can coordinate with her. We discussed a bus ticket as his transport home. (I did not offer to pay for this) Jackie will have one of the siblings call tomorrow. There are 2 other brothers, [place] and Yg and one sister, Christa Stafford. Jackie says it will most likely be Yg or Christa that will call. Jackie states patient has a jehovah's witness family here that apparently bought him a plane ticket to go to his dad's . Jackie says patient refused to go home for the . She may have some of their contact information and will provide it tomorrow if she can find it. CM will follow. Date Signed: 08/22/2018 03:53 PM Electronically Signed By:Amanda King LCSW
[2018-08-22] MEDS: ENOXAPARIN 40 MG/0.4 ML SYR SC SCH (16:35)
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
[2018-08-22] MEDS: NS 1,000 ML IV SCH (18:32)
[2018-08-22 18:46] LABS: INR 1.13 (0.83-1.16); PROTIME(PATIENT) 14.7 SEC (12.0-15.0)
[2018-08-22 19:14] LABS: PLATELET COUNT 218 10^3/uL (150-400)
[2018-08-22] MEDS: MELATONIN 3 MG TAB PO SCH (20:49)
[2018-08-23] MEDS: PROMETHAZINE HCL 25 MG/ML INJ IVP PRN ×3 (00:29→17:08)
[2018-08-23] MEDS: LORazepam 2 MG/ML INJ IVP PRN ×5 (00:49→20:33)
[2018-08-23] MEDS: HYDROmorphONE/DILAUDID 1 MG/ML INJ IVP PRN ×6 (00:49→20:03)
[2018-08-23] MEDS: NS 1,000 ML IV SCH (02:48)
[2018-08-23] MEDS: ENOXAPARIN 40 MG/0.4 ML SYR SC SCH (09:07)
[2018-08-23] MEDS: FOLIC ACID 1 MG TAB PO SCH (12:49)
[2018-08-23] MEDS: MULTIVITAMINS 1 EACH TAB PO SCH (12:50)
[2018-08-23] MEDS: GABAPENTIN 100 MG CAP PO SCH ×3 (12:50→21:17)
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
[2018-08-23] MEDS: THIAMINE HCL 100 MG TAB PO SCH (12:53)
[2018-08-23] MEDS: POLYETHYLENE GLYCOL 3350 17 GM PKT PO SCH (14:18)
[2018-08-23] MEDS: SENNOSIDES/DOCUSATE SODIUM TAB PO SCH ×2 (14:24→21:20)
--- NOTE | 2018-08-23 15:52 | ASMTCMCOM ---
CM Note CM Note Notes: CM spoke w/pt's mother Jackie. She states that pt's siblings are unable to assist and due to her age and health she also is not able to help. CM resent referral to SNF, as some places thought he was on contact precautions. DC Plan: SNF Date Signed: 08/23/2018 03:51 PM Electronically Signed By:Missy Singletary RN
[2018-08-23] MEDS: oxyCODONE IR 5 MG TAB PO PRN ×2 (17:06→23:53)
[2018-08-23] MEDS: MELATONIN 3 MG TAB PO SCH (21:17)
[2018-08-24] MEDS: HYDROmorphONE/DILAUDID 1 MG/ML INJ IVP PRN ×2 (02:07→09:02)
[2018-08-24] MEDS: LORazepam 2 MG/ML INJ IVP PRN (02:51)
[2018-08-24] MEDS: oxyCODONE IR 5 MG TAB PO PRN ×4 (05:00→23:35)
[2018-08-24] MEDS: GABAPENTIN 100 MG CAP PO SCH ×3 (08:41→21:36)
[2018-08-24] MEDS: ENOXAPARIN 40 MG/0.4 ML SYR SC SCH (08:41)
[2018-08-24] MEDS: THIAMINE HCL 100 MG TAB PO SCH (08:41)
[2018-08-24] MEDS: MULTIVITAMINS 1 EACH TAB PO SCH (08:41)
[2018-08-24] MEDS: FOLIC ACID 1 MG TAB PO SCH (08:41)
[2018-08-24] MEDS: SENNOSIDES/DOCUSATE SODIUM TAB PO SCH ×2 (08:42→22:04)
[2018-08-24] MEDS: POLYETHYLENE GLYCOL 3350 17 GM PKT PO SCH (08:44)
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
[2018-08-24] MEDS: ACETAMINOPHEN 500 MG TAB PO SCH ×2 (13:12→22:04)
--- NOTE | 2018-08-24 15:19 | ASMTCMCOM ---
CM Note CM Note Notes: All SNF/rehab programs referrals sent out have been declined. They have declined for multiple reasons which include a lack of beds,his bipolar diagnosis, hx of ETOH abuse and the pending approval of long-term Medicaid. Facilities that had not responded to [employer] referrals were contacted by phone; they all declined. He was referred to [facility] respite program where he was placed on their waiting list. [facility] was contacted and a message was left. For those facilities who declined due to bipolar and ETOH diagnosis, updated packets will be sent with the message clearly stated that these diagnosis have not interfered with his ability to benefit from treatment here. CM to follow. D/C Plan: SNF/rehab Date Signed: 08/24/2018 03:18 PM Electronically Signed By:Clemencia Petersen
[2018-08-24] MEDS: HYDROCODONE/APAP 5/325 TAB PO PRN ×2 (15:20→21:37)
--- NOTE | 2018-08-24 15:33 | ASMTCMCOM ---
CM Note CM Note Notes: Following a review of pt's referrals CM chose to resubmit referrals to all facilities with updated notes and a brief description of Pt's current behavior which has been cooperative and without special needs. D/C Plan: SNF/rehab Date Signed: 08/24/2018 03:33 PM Electronically Signed By:Clemencia Petersen
[2018-08-24] MEDS: LORazepam 0.5 MG TAB PO PRN ×2 (19:30→23:35)
[2018-08-24] MEDS: MELATONIN 3 MG TAB PO SCH (21:37)
[2018-08-25] MEDS: HYDROCODONE/APAP 5/325 TAB PO PRN ×4 (01:37→22:25)
[2018-08-25] MEDS: oxyCODONE IR 5 MG TAB PO PRN ×4 (04:30→18:14)
[2018-08-25] MEDS: ACETAMINOPHEN 500 MG TAB PO SCH ×3 (05:33→21:16)
[2018-08-25] MEDS: FOLIC ACID 1 MG TAB PO SCH (07:44)
[2018-08-25] MEDS: ENOXAPARIN 40 MG/0.4 ML SYR SC SCH (07:44)
[2018-08-25] MEDS: MULTIVITAMINS 1 EACH TAB PO SCH (07:44)
[2018-08-25] MEDS: GABAPENTIN 100 MG CAP PO SCH ×3 (07:44→21:16)
[2018-08-25] MEDS: THIAMINE HCL 100 MG TAB PO SCH (07:44)
[2018-08-25] MEDS: LORazepam 0.5 MG TAB PO PRN ×4 (08:00→21:15)
[2018-08-25] MEDS: POLYETHYLENE GLYCOL 3350 17 GM PKT PO SCH (12:15)
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
[2018-08-25] MEDS: SENNOSIDES/DOCUSATE SODIUM TAB PO SCH ×2 (13:06→21:16)
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
--- NOTE | 2018-08-25 13:56 | ASMTCMCOM ---
CM Note CM Note Notes: RAKESH spoke with Jam from [facility]. Jam states that SNFs are reviewing updated information and will be in touch once review complete. D/C Plan: SNF/Rehab Date Signed: 08/25/2018 01:54 PM Electronically Signed By:Clemencia Petersen
[2018-08-25] MEDS: CYCLOBENZAPRINE 10 MG TAB PO PRN (15:16)
[2018-08-25] MEDS: MELATONIN 3 MG TAB PO SCH (21:15)
[2018-08-26] MEDS: oxyCODONE IR 5 MG TAB PO PRN ×5 (00:20→23:33)
[2018-08-26] MEDS: HYDROCODONE/APAP 5/325 TAB PO PRN ×4 (02:00→19:34)
[2018-08-26] MEDS: LORazepam 0.5 MG TAB PO PRN ×4 (02:16→19:33)
[2018-08-26] MEDS: ACETAMINOPHEN 500 MG TAB PO SCH ×2 (05:50→14:12)
[2018-08-26] MEDS: GABAPENTIN 100 MG CAP PO SCH ×3 (08:04→21:18)
[2018-08-26] MEDS: MULTIVITAMINS 1 EACH TAB PO SCH (08:05)
[2018-08-26] MEDS: ENOXAPARIN 40 MG/0.4 ML SYR SC SCH (08:05)
[2018-08-26] MEDS: FOLIC ACID 1 MG TAB PO SCH (08:05)
[2018-08-26] MEDS: THIAMINE HCL 100 MG TAB PO SCH (08:05)
[2018-08-26] MEDS: POLYETHYLENE GLYCOL 3350 17 GM PKT PO SCH (09:17)
[2018-08-26] MEDS: SENNOSIDES/DOCUSATE SODIUM TAB PO SCH ×2 (09:18→22:17)
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
--- NOTE | 2018-08-26 15:19 | ASMTCMCOM ---
CM Note CM Note Notes: There have been no acceptances from SNF; pt continues to look into going to [place] where his brothers live. Pt asked CM for assist in identifying places in [place] where he can pursue rehab. CM printed out several agencies which accepted Medicaid and pt independently contacting them. Pt thankful. It remains unclear as to whether [facility] could help pt financially with cost of bus ticket. D/C Plan: TBD Date Signed: 08/26/2018 03:18 PM Electronically Signed By:Clemencia Petersen
[2018-08-26] MEDS: hydrOXYzine HCL 25 MG TAB PO PRN (21:18)
[2018-08-26] MEDS: MELATONIN 3 MG TAB PO SCH (21:18)
[2018-08-27] MEDS: HYDROCODONE/APAP 5/325 TAB PO PRN ×4 (01:04→20:54)
[2018-08-27] MEDS: LORazepam 0.5 MG TAB PO PRN ×4 (01:15→20:54)
[2018-08-27] MEDS: oxyCODONE IR 5 MG TAB PO PRN ×3 (06:06→19:28)
[2018-08-27] MEDS: GABAPENTIN 100 MG CAP PO SCH ×3 (09:02→19:28)
[2018-08-27] MEDS: FOLIC ACID 1 MG TAB PO SCH (09:02)
[2018-08-27] MEDS: MULTIVITAMINS 1 EACH TAB PO SCH (09:02)
[2018-08-27] MEDS: ENOXAPARIN 40 MG/0.4 ML SYR SC SCH (09:03)
[2018-08-27] MEDS: THIAMINE HCL 100 MG TAB PO SCH (09:03)
[2018-08-27] MEDS: hydrOXYzine HCL 25 MG TAB PO PRN ×2 (09:08→19:28)
[2018-08-27] MEDS: POLYETHYLENE GLYCOL 3350 17 GM PKT PO SCH (09:26)
[2018-08-27] MEDS: SENNOSIDES/DOCUSATE SODIUM TAB PO SCH ×2 (09:26→19:31)
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
[2018-08-27] MEDS ORDERED: HYDROCODONE/APAP 5/325 TAB PO PRN (15:58)
[2018-08-27] MEDS: CYCLOBENZAPRINE 10 MG TAB PO PRN (19:28)
[2018-08-27] MEDS: MELATONIN 3 MG TAB PO SCH (19:28)
[2018-08-28] MEDS: LORazepam 0.5 MG TAB PO PRN ×3 (03:01→20:48)
[2018-08-28] MEDS: hydrOXYzine HCL 25 MG TAB PO PRN ×2 (03:01→20:48)
[2018-08-28] MEDS: oxyCODONE IR 5 MG TAB PO PRN ×4 (03:01→22:08)
[2018-08-28] MEDS: HYDROCODONE/APAP 5/325 TAB PO PRN ×4 (05:22→20:48)
[2018-08-28] MEDS: MULTIVITAMINS 1 EACH TAB PO SCH (08:08)
[2018-08-28] MEDS: ENOXAPARIN 40 MG/0.4 ML SYR SC SCH (08:08)
[2018-08-28] MEDS: FOLIC ACID 1 MG TAB PO SCH (08:08)
[2018-08-28] MEDS: THIAMINE HCL 100 MG TAB PO SCH (08:08)
[2018-08-28] MEDS: GABAPENTIN 100 MG CAP PO SCH ×3 (08:08→20:48)
[2018-08-28] MEDS: SENNOSIDES/DOCUSATE SODIUM TAB PO SCH ×2 (09:43→20:48)
[2018-08-28] MEDS: POLYETHYLENE GLYCOL 3350 17 GM PKT PO SCH (09:43)
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
[2018-08-28] MEDS: MELATONIN 3 MG TAB PO SCH (20:48)
[2018-08-28] MEDS: CYCLOBENZAPRINE 10 MG TAB PO PRN (22:09)
[2018-08-29] MEDS: hydrOXYzine HCL 25 MG TAB PO PRN ×2 (03:25→20:35)
[2018-08-29] MEDS: HYDROCODONE/APAP 5/325 TAB PO PRN ×4 (03:25→20:36)
[2018-08-29] MEDS: CYCLOBENZAPRINE 10 MG TAB PO PRN ×2 (03:25→20:36)
[2018-08-29] MEDS: LORazepam 0.5 MG TAB PO PRN ×4 (03:25→20:35)
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
[2018-08-29] MEDS: MULTIVITAMINS 1 EACH TAB PO SCH (08:20)
[2018-08-29] MEDS: THIAMINE HCL 100 MG TAB PO SCH (08:20)
[2018-08-29] MEDS: ENOXAPARIN 40 MG/0.4 ML SYR SC SCH (08:21)
[2018-08-29] MEDS: FOLIC ACID 1 MG TAB PO SCH (08:21)
[2018-08-29] MEDS: GABAPENTIN 100 MG CAP PO SCH ×3 (08:21→21:32)
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
[2018-08-29] MEDS: POLYETHYLENE GLYCOL 3350 17 GM PKT PO SCH (09:28)
[2018-08-29] MEDS: SENNOSIDES/DOCUSATE SODIUM TAB PO SCH ×2 (09:29→21:07)
--- NOTE | 2018-08-29 16:48 | ASMTCMCOM ---
CM Note CM Note Notes: Left message for [facility] to see if they are still willing to consider. Also sent referral to [facility] in [place] - attempted to call, unable to leave voicemail. Will follow-up on Tuesday. Discussed this case with Ivelisse Sauceda. We may need to order wheelchair and see about d/c to [facility] if no one will accept. Will continue to follow. Date Signed: 08/29/2018 04:47 PM Electronically Signed By:Tammy Gaines RN
[2018-08-29] MEDS: oxyCODONE IR 5 MG TAB PO PRN ×2 (17:45→23:57)
[2018-08-29] MEDS: MELATONIN 3 MG TAB PO SCH (20:35)
[2018-08-29] MEDS: TEMAZEPAM 15 MG CAP PO PRN (21:32)
[2018-08-30] MEDS: HYDROCODONE/APAP 5/325 TAB PO PRN ×3 (01:31→17:51)
[2018-08-30] MEDS: LORazepam 0.5 MG TAB PO PRN ×5 (01:31→21:45)
[2018-08-30] MEDS: oxyCODONE IR 5 MG TAB PO PRN ×3 (05:57→19:39)
[2018-08-30] MEDS: POLYETHYLENE GLYCOL 3350 17 GM PKT PO SCH (08:47)
[2018-08-30] MEDS: SENNOSIDES/DOCUSATE SODIUM TAB PO SCH ×2 (08:47→21:20)
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
[2018-08-30] MEDS ORDERED: IBUPROFEN 200 MG TAB PO ONE (09:41)
[2018-08-30] MEDS: GABAPENTIN 100 MG CAP PO SCH ×3 (09:44→21:45)
[2018-08-30] MEDS: MULTIVITAMINS 1 EACH TAB PO SCH (09:44)
[2018-08-30] MEDS: THIAMINE HCL 100 MG TAB PO SCH (09:44)
[2018-08-30] MEDS: ENOXAPARIN 40 MG/0.4 ML SYR SC SCH (09:44)
[2018-08-30] MEDS: FOLIC ACID 1 MG TAB PO SCH (09:44)
--- NOTE | 2018-08-30 13:20 | ASMTCMCOM ---
CM Note CM Note Notes: Received a call from Kami at [facility] today #[phone]. She received the referral and is willing to accept. [facility] has been notified and will send the PASRR/ULTC-100 to [place] hopefully this afternoon. [facility] stretcher transport has been scheduled for 12 p.m. on 08/31/18. Carmen Nam has been notified and will d/c tomorrow morning. Met with patient to explain the plan - he seems hesitant and requested the # for [place] so that he could call and ask questions. CM explained this is our best option for d/c at this time (several denials from SNFs). If patient does not agree to this plan tomorrow - there is not another feasible CM plan at this time except for an arrangement to [facility]. Patient states he understands. CM will visit him tomorrow to ensure he is ready. Plan: SNF - [facility] Date Signed: 08/30/2018 01:20 PM Electronically Signed By:Tammy Gaines RN
[2018-08-30] MEDS: TEMAZEPAM 15 MG CAP PO PRN (21:45)
[2018-08-30] MEDS: hydrOXYzine HCL 25 MG TAB PO PRN (21:46)
[2018-08-30] MEDS: MELATONIN 3 MG TAB PO SCH (21:46)
[2018-08-30] MEDS: CYCLOBENZAPRINE 10 MG TAB PO PRN (21:46)
[2018-08-31] MEDS: oxyCODONE IR 5 MG TAB PO PRN ×2 (02:04→10:09)
[2018-08-31] MEDS: LORazepam 0.5 MG TAB PO PRN ×2 (02:04→10:09)
[2018-08-31] MEDS: HYDROCODONE/APAP 5/325 TAB PO PRN ×2 (02:05→10:09)
[2018-08-31 07:03] VITALS: BP 100/69
[2018-08-31] MEDS: ENOXAPARIN 40 MG/0.4 ML SYR SC SCH (09:32)
[2018-08-31] MEDS: MULTIVITAMINS 1 EACH TAB PO SCH (09:32)
[2018-08-31] MEDS: FOLIC ACID 1 MG TAB PO SCH (09:32)
[2018-08-31] MEDS: THIAMINE HCL 100 MG TAB PO SCH (09:32)
[2018-08-31] MEDS: GABAPENTIN 100 MG CAP PO SCH (09:32)
[2018-08-31] MEDS: POLYETHYLENE GLYCOL 3350 17 GM PKT PO SCH (09:38)
[2018-08-31] MEDS: SENNOSIDES/DOCUSATE SODIUM TAB PO SCH (09:38)
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
--- NOTE | 2018-08-31 10:51 | PDIAF ---
- Diagnosis Diagnosis: R bimalleolar fx s/p repair Code Status: Full Code - Medication Management Discharge Medications: electronically signed and located in the Home Medication List. - Orders Services needed: Physical Therapy, Occupational Therapy Isolation Type: None Additional Instructions: NWB to right foot Elevation and icing for 2wks postop. NWB RLE x 6wks postop, then graduated WB in boot until fully WB in boot - typically another 4-6 weeks. Pt will be FWB in shoe at ~3 months postop. keep splint CDI -Will potentially remove stitches in ~ 1-2 weeks. make appt to see Dr Hurley in the next week for f/u care wean off pain medications - Follow Up Care Current Providers and Referrals: NONE *PRIMARY CARE P,. [Primary Care Provider] - As per Instructions iDlip Hurley MD [Medical Doctor] - follow up in 1 week
--- NOTE | 2018-08-31 11:21 | ASMTDCNOTE ---
Case Management Discharge Discharge Order Complete? Answers: Yes Patient to Obtain Answers: Other Notes: [facility] Medications Transportation Arranged Answers: [facility]cher [facility] will Pick (Date 08/31/2018 12:00 PM & Time) Case Management Transport Answers: Yes Form Complete Faxed Final Orders Answers: Yes Agency/Facility Transfer Answers: Yes Report Printed & Faxed to Receiving Agency Discharge Comments Notes: D/W Hospitalist; Patient medically ready for d/c today. Spoke with Kami at [facility], able to accept today. Orders sent via [employer] - # will call report. Met with patient, he is still hesitant about the plan but ultimately agreeable to go today. [facility] to transport at 12 p.m. Date Signed: 08/31/2018 11:20 AM Electronically Signed By:Tammy Gaines RN
--- NOTE | 2018-08-31 12:16 | ASMTCMCOM ---
CM Note CM Note Notes: [facility] arrived to transport patient today - after patient learned [facility] is unable to transport his bike (that is in our possession in security) patient refused to go. RAKESH/Carmen Coleman/SUBHASH/RN spent much time trying to explain that we would find a way to get his back transported to the rehab facility - patient still not agreeable. Kami at [facility] was willing to come pick his bike up - patient refused. He is now insisting on leaving, getting on his bike, and getting back to [place]. "My mom is going to send me some money." Despite efforts, patient is now not amenable to a discharge to [facility]. He will leave AMA, papers signed. Date Signed: 08/31/2018 12:14 PM Electronically Signed By:Tammy Gaines RN
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
--- NOTE | 2018-08-31 20:42 | PDCONSULT ---
Seasonal Recruiter Note: Event Note: Arrived at hospital to see patient but see that he has left AMA. Appreciate hospitalist communication regarding need for continued nonweightbearing for the next month and plan for suture removal in the next week or so. I'm quite concerned that he is going to walk on his ankle and his fixation will fail. For this potential outcome, I did try to ensure robust fixation (while maintaining a reasonably low profile. His wounds are also at risk for complication if he does not care for them appropriately. We discussed these risks at the time of consent, and I am disappointed that he is taking additional risk by having left AMA. He was aware that if he suffers complications, there is a potential route to wound complication, exposed hardware, osteomyelitis, and even the need for an amputation. I hope it does not come to this.
== END 2018-08-31 12:11 | disposition left against medical advice (07) | DRG 313 ==
LOC: EDUNIT# → F3E 08-11 01:08
PROVIDERS: ADMIT Orthopaedic Surgery; ATTEND Orthopaedic Surgery
DX: S82.841A Displaced bimalleolar fracture of right lower leg, initial encounter for closed fracture (principal); B19.20 Unspecified viral hepatitis C without hepatic coma; V03.10XA Pedestrian on foot injured in collision with car, pick-up truck or van in traffic accident, initial encounter; K59.00 Constipation, unspecified; F10.120 Alcohol abuse with intoxication, uncomplicated; R26.9 Unspecified abnormalities of gait and mobility; F32.9 Major depressive disorder, single episode, unspecified; G47.00 Insomnia, unspecified; Y90.7 Blood alcohol level of 200-239 mg/100 ml; Z59.0 Homelessness; Z72.0 Tobacco use; Y92.481 Parking lot as the place of occurrence of the external cause
CPT/HCPCS: 97116-GP; 97161-GP; 97165-GO; 97530-GO; 97530-GP; C1713; G0472; G0480; J0690; J1100; J1170; J1650; J2060; J2250; J2405; J2550; J2704; J3010

== ENCOUNTER 2018-08-31 21:16 | Observation (INO) | payer MEDICAID ==
--- NOTE | 2018-08-31 21:22 | EDPHY ---
H & P Time Seen by Provider: 08/31/18 21:20 HPI/ROS: HPI CHIEF COMPLAINT: Increasing right ankle pain. HISTORY OF PRESENT ILLNESS: This is a 58-year-old male, homeless, history polysubstance abuse, including alcohol, hep C, presents to the emergency room with right ankle pain. The patient recently had ORIF by-mal fracture. He was supposed to go to a shelter facility but refused this and left the hospital on his own will. He now presents back to the emergency room as he states that he is unable to care for himself, unable to bear weight on his right ankle, is homeless. He states he made the wrong decision. Patient denies any new injury. Past Medical History: Hepatitis-C, polysubstance abuse, alcoholism, homeless Past Surgical History: Recent right ankle ORIF. Social History: Alcohol use. Homeless. Family History: ROS REVIEW OF SYSTEMS: 10 Systems were reviewed and negative with the exception of the elements mentioned in the history of present illness. Exam Constitutional triage nursing summary reviewed, vital signs reviewed, awake/ alert. Eyes normal conjunctivae and sclera, EOMI, PERRLA. HENT normal inspection, atraumatic, moist mucus membranes, no epistaxis, neck supple/ no meningismus, no raccoon eyes. Respiratory clear to auscultation bilaterally, normal breath sounds, no respiratory distress, no wheezing. Cardiovascular rate normal, regular rhythm, no murmur, no edema, distal pulses normal. Gastrointestinal soft, non-tender, no rebound, no guarding, normal bowel sounds, no distension, no pulsatile mass. Genitourinary no CVA tenderness. Musculoskeletal : Right lower extremity, good distal pulse, good cap refill, incision lines of clear clean, dry and intact. Sutures in place. No signs of infection. Good distal pulse, no evidence of compartment syndrome. no midline vertebral tenderness, full range of motion, no calf swelling, no tenderness of extremities, no meningismus, good pulses, neurovascularly intact. Skin pink, warm, & dry, no rash, skin atraumatic. Neurologic awake, alert and oriented x 3, AAOx3, moves all 4 extremities equally, motor intact, sensory intact, CN II-XII intact, normal cerebellar, normal vision, normal speech. Psychiatric normal mood/affect. Heme/Lymph/Immune no lymphadenopathy. Differential Diagnosis: Includes but is not limited to in a particular order unable to care for himself due to recent right ankle fracture status post ORIF, nonweightbearing, alcoholism, homelessness. Medical Decision Making: Plan for this patient his splint is dirty, wet, and loose. Will need to take this off, and evaluate his wounds. Additionally will need to re-splint him. Re-evaluation: 2125: The patient splint was taken down. His wounds were reexamine. No evidence of infection. Foot is neurovascular intact. We will re-splint him. Source: Patient, EMS - Personal History Tetanus Vaccine Date: 2012 - Medical/Surgical History Hx Asthma: No Hx Chronic Respiratory Disease: No Hx Diabetes: No Hx Cardiac Disease: No Hx Renal Disease: No Hx Cirrhosis: Yes Hx Alcoholism: Yes Hx HIV/AIDS: No Hx Splenectomy or Spleen Trauma: No Other PMH: hep c, polyps removed, bipolar, CHI, ETOH, lupus, urinary & bowel incontinence, neck pain, hx blood clots, pancreatitis, BPH, Scabies - Social History Smoking Status: Never smoked Constitutional: Initial Vital Signs Temperature (C) 36.7 C 08/31/18 21:22 Heart Rate 84 08/31/18 21:22 Respiratory Rate 16 08/31/18 21:22 Blood Pressure 121/74 H 08/31/18 21:22 O2 Sat (%) 92 08/31/18 21:22 O2 Delivery Mode Room Air Allergies/Adverse Reactions: morphine Allergy (Severe, Verified 08/31/18 21:22) Dyspnea Iodinated Contrast- Oral and IV Dye Allergy (Verified 08/31/18 21:22) pneumococcal vaccine Allergy (Verified 08/31/18 21:22) Home Medications: Medication Instructions Recorded Polyethylene Glycol 3350 [Miralax 17 gm PO DAILY pkt 08/31/18 17 gm (*)] Sennosides/Docusate Sodium 1 - 2 tab PO BID tab 08/31/18 [Senokot-S] Thiamine HCl [Vitamin B-1] 100 mg PO DAILY tab 08/31/18 Acetaminophen [Tylenol 325mg (*)] 650 mg PO Q4HRS PRN tab 09/01/18 Folic Acid [Folic Acid 1 MG (*)] 1 mg PO DAILY tab 09/01/18 Ibuprofen [Motrin (*)] 400 mg PO Q4HRS PRN tab 09/01/18 Multivitamins [Multivitamin (*)] 1 each PO DAILY tab 09/01/18 Medical Decision Making - Data Points Medications Given: Discontinued Medications Cyclobenzaprine HCl (Flexeril) 10 mg PO TID PRN PRN Reason: Spasms Stop: 02/28/19 08:59 Last Admin: 09/01/18 05:58 Dose: 10 mg Enoxaparin Sodium (Lovenox) 40 mg SC DAILY CHRISTIANNE Stop: 02/28/19 08:59 Last Admin: 09/01/18 08:22 Dose: 40 mg Folic Acid (Folic Acid) 1 mg PO DAILY CHRISTIANNE Stop: 02/28/19 08:59 Last Admin: 09/01/18 08:22 Dose: 1 mg Ibuprofen (Motrin) 400 mg PO Q4HRS PRN PRN Reason: Pain, Mild/Fever, Can Take PO Stop: 02/27/19 22:28 Last Admin: 09/01/18 12:33 Dose: 400 mg Multivitamins (Tab-A-Rosio) 1 each PO DAILY CHRISTIANNE Stop: 02/28/19 08:59 Last Admin: 09/01/18 08:22 Dose: 1 each Thiamine HCl (Vitamin B-1) 100 mg PO DAILY CHRISTIANNE Stop: 02/28/19 08:59 Last Admin: 09/01/18 08:23 Dose: 100 mg Departure - Departure Disposition: [facility] Acute Clinical Impression: Ankle fracture Condition: Fair
[2018-08-31] MEDS ORDERED: ONDANSETRON DISINTEGRATING 4 MG TAB PO PRN (22:29)
[2018-08-31] MEDS ORDERED: ACETAMINOPHEN 325 MG TAB PO PRN (22:29)
[2018-08-31] MEDS ORDERED: ONDANSETRON 4 MG/2 ML VIAL IVP PRN (22:29)
[2018-09-01] MEDS: IBUPROFEN 200 MG TAB PO PRN ×3 (00:04→12:33)
[2018-09-01] MEDS ORDERED: FLUMAZENIL 0.5 MG/5 ML MDV IVP PRN (00:49)
[2018-09-01] MEDS ORDERED: LORazepam 2 MG/ML INJ IVP PRN (00:49)
--- NOTE | 2018-09-01 01:58 | GHP ---
DATE OF ADMISSION: 09/01/2018 SOURCE: Patient provides history, is a fair historian. EMR was reviewed and case discussed with ED provider. CHIEF COMPLAINT: Right leg pain. HISTORY OF PRESENT ILLNESS: This is a 58-year-old gentleman with past medical history significant for alcohol abuse, HCV, depression, homelessness, who presents to the emergency department today after leaving AMA earlier today following a prolonged admission of a right bimalleolar fracture requiring ORIF. Patient had plans to be discharged to a halfway facility in [place], and plans had been put into place for patient to be transferred. At the last minute, patient decided that he did not want to go to that care facility. He returned to the emergency department today complaining of increasing pain as he had been ambulating on his right ankle despite having instructions for nonweightbearing for 6 weeks and reports that he did drink 2 pints of liquor. Patient at this time reports that he is quite remorseful for his decision to leave, and he now is requesting that we consider assisting him to get placement. Patient does report some fevers, chills. He has not had any cough, shortness of breath, rhinorrhea. No dysuria or hematuria. He has a history of some chronic skin lesions that resolved prior to discharge. The incision was evaluated by the ER provider before a new splint was placed, and it was reported this was dry, clean, and intact. REVIEW OF SYSTEMS: 10 systems reviewed and negative, except as noted above. ALLERGIES: Contrast, morphine, pneumococcal vaccination. HOME MEDICATIONS: None as patient left AMA; however, his medications at time of his leaving included Oxy IR, hydroxyzine, thiamine, Restoril, senna, MiraLAX , multivitamins, melatonin, [place], gabapentin, folic acid, Lovenox, and Flexeril. PAST MEDICAL HISTORY: Significant for alcohol abuse; HCV; depression; homelessness; chronic skin lesions, now resolved; insomnia. PAST SURGICAL HISTORY: Significant for patient's right bimalleolar fracture, status post ORIF; throat surgery. FAMILY HISTORY: Patient denies any chronic medical conditions in the family. SOCIAL HISTORY: Patient is homeless. He drinks 2 pints of liquor on a daily basis. Denies any illicit drug use or marijuana. He denies any tobacco use. He reports that he quit 30 years ago. CODE STATUS: Full. PHYSICAL EXAMINATION: VITAL SIGNS UPON ARRIVAL TO THE EMERGENCY DEPARTMENT: Blood pressure 121/74, heart rate 84, respiratory rate 16, O2 sat 92% on room air with temperature 36.7. CURRENT VITALS AVAILABLE: Blood pressure 110/77, heart rate 109, respiratory rate 16, O2 sat is 95% on room air. GENERAL: No acute distress. Adult gentleman is lying quietly in bed, appears slightly older than stated age. He is a little somnolent but wakes and answers questions. HEAD: Normocephalic, atraumatic. EYES: Extraocular muscles are grossly intact. Patient keeps his eyes closed for most of the interview, except when prompted. ENT: Mucous membranes appear moist. No oropharyngeal erythema. Dentition in fair condition. No nasal discharge. NECK: Supple. Trachea midline. CV: Regular rate and rhythm. No murmurs, rubs, or gallops appreciated. RESPIRATORY: Unlabored breathing. Lungs clear to auscultation bilaterally. No wheezes, rales, or rhonchi. Decreased inspiratory effort resulting in decreased air movement bibasilarly. ABDOMEN: Positive bowel sounds, soft, nontender to palpation. No rebound, guarding, or masses appreciated. : No suprapubic tenderness to palpation. No Ba catheter in place. EXTREMITIES: Right leg is in a splint. His toes are exposed, with good color, good cap refill, and he is able to move those digits. Left lower extremity strength is intact. Moves against gravity. Moves upper extremities. Grossly normal exam other than the right lower extremity in a splint. NEURO: Grossly nonfocal. No facial drooping. Patient moves extremities as noted above. PSYCH: Affect is quite flat, but patient is also a little bit somnolent. He wakes easily to name. Patient is awake, alert, and oriented x3. He is remorseful. He reports remorse for having left AMA earlier today. LABORATORY STUDIES: None for this morning. Inpatient Labs reviewed. ASSESSMENT AND PLAN: This is a 58-year-old gentleman with a discharge yesterday against medical advice following right ankle fracture, status post open reduction, internal fixation and previous plans for discharge to halfway facility, who presents back after leaving against medical advice with complaints of pain and inability to care for himself. 1. Right leg pain. Patient had the splint removed and replaced in the emergency department. He acknowledges his mistake in trying to ambulate and recognizes his instructions were for nonweightbearing status for 6 weeks. Again , patient is remorseful that he left the hospital and acknowledges that he needs more assistance than he can reasonably do on his own on the streets. Patient's discharge summary from yesterday was reviewed and noted that there were plans to taper off narcotics. Will not resume these at this time. Additionally, patient is currently inebriated. Will avoid Tylenol products. I have ordered some ibuprofen. His previous renal function was adequate. Will check a.m. labs including CBC and a CMP. Physical Therapy, Occupational Therapy will be consulted. Case Management consult. 2. Alcohol abuse. Patient admits to drinking 2 pints. Has been placed on [facility] [place] Withdrawal Assessment protocol. Resume patient's folic acid , multivitamin, and thiamine. 3. History of hepatitis C virus. Patient reports he does not use any illicit drugs or history of intravenous injection. 4. Depression. Patient's current mood is currently stable. 5. Homelessness. Case Management as noted above. 6. History of insomnia. Patient currently somnolent. Will minimize use of sedatives, except for [facility] [place] Withdrawal Assessment protocol at this time. 7. Fluid, electrolyte, nutrition: Patient tolerating by mouth. Will encourage oral hydration. Electrolytes will be checked in the morning. Diet as tolerated. 8. Prophylaxis: Sequential compression device on the left leg. Lovenox. 9. COR status is full. 10. Disposition: Patient admitted to observation status on the medical- surgical floor pending further evaluation and recommendations by Case Management tomorrow. /[id number]/MODL MTDD
[2018-09-01] MEDS ORDERED: CYCLOBENZAPRINE 10 MG TAB PO PRN ×2 (04:56→10:39)
[2018-09-01 06:24] LABS: PLATELET COUNT 235 10^3/uL (150-400)
--- NOTE | 2018-09-01 08:15 | ASMTLACE ---
[facility] Comorbidities - select Answers: Other Notes: Hep C all that apply # of Emergency department Answers: 9-12 visits in the last 6 months Social determinants Answers: History of substance abuse (ETOH, street drugs, prescription drugs, etc.) Homelessness (street, penitentiary) Mental health diagnosis (anxiety, depression, pers onality disorders, etc.) Score: 15 Date Signed: 09/01/2018 08:13 AM Electronically Signed By:Verónica Espinoza
[2018-09-01] MEDS ORDERED: MULTIVITAMINS 1 EACH TAB PO SCH (09:00)
[2018-09-01] MEDS ORDERED: THIAMINE HCL 100 MG TAB PO SCH (09:00)
[2018-09-01] MEDS ORDERED: ENOXAPARIN 40 MG/0.4 ML SYR SC SCH (09:00)
[2018-09-01] MEDS ORDERED: FOLIC ACID 1 MG TAB PO SCH (09:00)
[2018-09-01] MEDS ORDERED: hydrOXYzine HCL 25 MG TAB PO PRN (10:39)
[2018-09-01] MEDS ORDERED: TEMAZEPAM 15 MG CAP PO PRN (10:39)
[2018-09-01] MEDS ORDERED: HYDROCODONE/APAP 5/325 TAB PO PRN (10:39)
[2018-09-01] MEDS ORDERED: oxyCODONE IR 5 MG TAB PO PRN (10:39)
--- NOTE | 2018-09-01 11:47 | ASMTLACE ---
[facility] Length of stay for Answers: Less than 1 day current admission Acuity / Level of Answers: No Care: Did the patient have an inpatient admission? Comorbidities - select Answers: Other Notes: Hep C all that apply # of Emergency department Answers: 9-12 visits in the last 6 months Social determinants Answers: History of substance abuse (ETOH, street drugs, prescription drugs, etc.) Homelessness (street, halfway) Mental health diagnosis (anxiety, depression, pers onality disorders, etc.) Score: 15 Date Signed: 09/01/2018 11:33 AM Electronically Signed By:Tammy Gaines RN
--- NOTE | 2018-09-01 11:55 | ASMTCMCOM ---
CM Note CM Note Notes: Patient admitted (after leaving AMA yesterday) for R leg pain. Please refer to previous admissions's CM notes. Much time/effort/resources have been spent on this patient as we worked to get him to a SNF in [place]. Patient ultimately refused to go last minute because [facility] could not accommodate transporting his bike. This case was discussed with nursing staff and BUSINESS OPERATIONS COORDINATOR today. Patient has no medical reason to be here, we will d/c him back to the streets. [facility] bed has been reserved, instructions on how to get to [facility] have been given to patient. A [facility] appt. has been scheduled for this upcoming Tuesday - instructed patient on the importance of making his appt. He also understands he needs to follow-up with Dr. Hurley next week. Bus pass provided as well as a walker. Patient will need to get to [facility] and then to the custodial this evening. RN understands. CM available for any further needs. Plan: Independent d/c to homeless custodial. Date Signed: 09/01/2018 11:39 AM Electronically Signed By:Tammy Gaines RN
[2018-09-01 12:19] VITALS: BP 112/76
--- NOTE | 2018-09-01 14:23 | GDS ---
DISCHARGE DIAGNOSES: 1. Right leg pain. 2. Alcohol abuse. 3. History of hepatitis C. 4. Depression. 5. Homelessness. 6. History of insomnia. PHYSICAL EXAM: GENERAL: The patient is alert. VITAL SIGNS: Afebrile at 36.7, pulse 92, respirator y rate 16. Blood pressure is 112/76. He is saturating 98% on room air. I have seen and evaluated t bin patient on the day of discharge. HOSPITAL COURSE: The patient is a 58-year-old male who was previously discharged from the hospital 1 day prior to a long term facility, at which time he left against medical advice and returned t o the hospital. He is being admitted secondary to right leg pain in the setting of a recent internal fixation and open reduction surgical intervention. The patient is complaining of right leg pain. H is splint has been cleaned and dressed. It was noted to be wet and not taken care of. Great lengths were taken by Case Management during his prior hospitalization to arrange outpatient safe discharge with a long term facility. Once at the long term facility, the patient left against medic al advice and began drinking in the outpatient setting. He is returning to this hospital with compla ints. He has been evaluated and admitted for further therapies. At this time, the patient will be di scharged to the assisted to follow up in the outpatient setting. I have had a lengthy conversation wi Case Management, who is in support of this plan. He will follow up at [facility], as well as with Dr. Hurley, his orthopedist. An appointment has been made for him on September 04, at 11 a.m., and he will also have resources back to [facility]. DISCHARGE MEDICATIONS: Please refer to EMR form. I have not provided the patient any prescriptions at the time of disposition. Again, he will be discharged to the assisted with further outpatient care already arranged. I spent greater than 35 minutes in the care, coordination, and management of the patient's carmel n. /[id number]/MODL
[2018-09-01] MEDS ORDERED: GABAPENTIN 100 MG CAP PO SCH (16:00)
[2018-09-01] MEDS ORDERED: MELATONIN 3 MG TAB PO SCH (21:00)
[2018-09-01] MEDS ORDERED: SENNOSIDES/DOCUSATE SODIUM TAB PO SCH (21:00)
[2018-09-02] MEDS ORDERED: POLYETHYLENE GLYCOL 3350 17 GM PKT PO SCH (09:00)
[2018-09-02] MEDS ORDERED: THIAMINE HCL 100 MG TAB PO SCH (09:00)
[2018-09-02] MEDS ORDERED: ENOXAPARIN 40 MG/0.4 ML SYR SC SCH (09:00)
[2018-09-02] MEDS ORDERED: MULTIVITAMINS 1 EACH TAB PO SCH (09:00)
[2018-09-02] MEDS ORDERED: FOLIC ACID 1 MG TAB PO SCH (09:00)
== END 2018-09-01 14:05 | disposition home or self-care (01) ==
LOC: EDUNIT# → F3N 23:45
PROVIDERS: ADMIT Family Medicine; ATTEND Internal Medicine
PROC: 2W3QX1Z Immobilization of Right Lower Leg using Splint (ICD-10-PCS; principal; 2018-08-31)
DX: M25.571 Pain in right ankle and joints of right foot (principal); S82.841D Displaced bimalleolar fracture of right lower leg, subsequent encounter for closed fracture with routine healing; Z91.19 Patient's noncompliance with other medical treatment and regimen; F10.920 Alcohol use, unspecified with intoxication, uncomplicated; B19.20 Unspecified viral hepatitis C without hepatic coma; F32.9 Major depressive disorder, single episode, unspecified; G47.00 Insomnia, unspecified; Z98.890 Other specified postprocedural states; Z87.891 Personal history of nicotine dependence; Z59.0 Homelessness
CPT/HCPCS: 29515; 96372; 97165; 99285; G0378; J1650

== ENCOUNTER 2018-09-01 18:19 | Emergency (ER) | payer MEDICAID ==
--- NOTE | 2018-09-01 18:21 | EDPHY ---
H & P Time Seen by Provider: 09/01/18 18:21 - Personal History Tetanus Vaccine Date: 2012 - Medical/Surgical History Hx Asthma: No Hx Chronic Respiratory Disease: No Hx Diabetes: No Hx Cardiac Disease: No Hx Renal Disease: No Hx Cirrhosis: Yes Hx Alcoholism: Yes Hx HIV/AIDS: No Hx Splenectomy or Spleen Trauma: No Other PMH: hep c, polyps removed, bipolar, CHI, ETOH, lupus, urinary & bowel incontinence, neck pain, hx blood clots, pancreatitis, BPH, Scabies - Social History Smoking Status: Never smoked Allergies/Adverse Reactions: morphine Allergy (Severe, Verified 08/31/18 21:22) Dyspnea Iodinated Contrast- Oral and IV Dye Allergy (Verified 08/31/18 21:22) pneumococcal vaccine Allergy (Verified 08/31/18 21:22) Home Medications: Medication Instructions Recorded Polyethylene Glycol 3350 [Miralax 17 gm PO DAILY pkt 08/31/18 17 gm (*)] Sennosides/Docusate Sodium 1 - 2 tab PO BID tab 08/31/18 [Senokot-S] Thiamine HCl [Vitamin B-1] 100 mg PO DAILY tab 08/31/18 Acetaminophen [Tylenol 325mg (*)] 650 mg PO Q4HRS PRN tab 09/01/18 Folic Acid [Folic Acid 1 MG (*)] 1 mg PO DAILY tab 09/01/18 Ibuprofen [Motrin (*)] 400 mg PO Q4HRS PRN tab 09/01/18 Multivitamins [Multivitamin (*)] 1 each PO DAILY tab 09/01/18 Medical Decision Making ED Course/Re-evaluation: CHIEF COMPLAINT: HISTORY OF PRESENT ILLNESS: must have 4 elements: Location, Quality, Severity , Duration, Timing, Context, Modifying Factors, Associated Signs and Symptoms REVIEW OF SYSTEMS: A comprehensive 10 system review of systems is otherwise negative aside from elements mentioned in the history of present illness and medical decision making. PHYSICAL EXAM: HR, BP, O2 Sat, RR. Temp noted General Appearance: Alert, well hydrated, appropriate, and non-toxic appearing. Head: Atraumatic without scalp tenderness or obvious injury Eyes: Pupils equal, round, reactive to light and accommodation, EOMI, no trauma , no injection. Ears: Clear bilaterally, no perforation, normal landmarks Nose: Atraumatic, no rhinorrhea, clear. Throat: There is no erythema or exudates, no lesions, normal tonsils, mucus membranes moist. Neck: Supple, 2+ carotid upstroke, nontender, no lymphadenopathy. Respiratory: No retractions, no distress, no wheezes, and no accessory muscle use. Lungs are clear to auscultation bilaterally. Cardiovascular: Regular rate and rhythm, no murmurs, rubs, or gallops. Bilateral carotid, radial, dorsalis pedis, and posterior tibial pulses intact. Good capillary refill all extremities. Gastrointestinal: Abdomen is soft, nontender, non-distended, no masses, no rebound, no guarding, no peritoneal signs. Musculoskeletal: Normal active ROM of all extremities, atraumatic. Neurological: Alert, appropriate, and interactive. The patient has normal DTRs and non-focal cranial nerves, motor, sensory, and cerebellar exam. Skin: No rashes, good turgor, no nodules on palpation. Past medical history: Past surgical history: Family history: Social history: DIAGNOSTICS/PROCEDURES/CRITICAL CARE TIME: DIFFERENTIAL DIAGNOSIS: MEDICAL DECISION MAKING:
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
[2018-09-01] MEDS ORDERED: CHLORDIAZEPOXIDE 25MG PREPK#6 BTL TAKEHOME ONE ×2 (19:22→19:24)
[2018-09-01 19:49] VITALS: BP 106/83
== END 2018-09-01 19:42 | disposition home or self-care (01) ==
LOC: EDUNIT#
DX: F10.929 Alcohol use, unspecified with intoxication, unspecified (principal); M25.512 Pain in left shoulder; Z59.0 Homelessness

== ENCOUNTER 2018-09-03 16:04 | Emergency (ER) | payer MEDICAID ==
[2018-09-03 16:11] VITALS: BP 127/74
--- NOTE | 2018-09-03 16:14 | EDPHY ---
H & P Time Seen by Provider: 09/03/18 16:12 HPI/ROS: CHIEF COMPLAINT: "My cast is wet" HISTORY OF PRESENT ILLNESS: 58-year-old homeless male arrives via ambulance is complaining of a wet splint. The patient underwent ORIF right bimalleolar fracture 08/21/[address] Dilip Hurley. He was previous sent to [facility] facility at which point he left against medical advice. He states that he is not interested in going to rehabilitation facility. He has been sleeping outside. He has been ambulating on the operated leg. His only complaint is the cast padding being wet.\\ Denies: Acute trauma or fall, fever, chills, nausea, vomiting REVIEW OF SYSTEMS: 10 systems reviewed and negative with the exception of the elements mentioned in the history of present illness PAST MEDICAL & SURGICAL HISTORY: 08/21/2018 ORIF bimalleolar fracture right ankle. Alcohol SOCIAL HISTORY: Homeless. PHYSICAL EXAM (Prior to examination, patient consented to physical exam, hands were washed and my usual and customary physical exam procedures followed) 1) GENERAL: poorly kept alert and oriented. Appears to be in no acute distress. 2) HEAD: Normocephalic, atraumatic 3) HEENT: Pupils equal, round, reactive to light bilaterally. Sclera anicteric. 4) NECK: Full range of motion, no meningeal signs. 5) LUNGS: Clear auscultation bilaterally, no wheezes, no rhonchi, no retractions. 6) HEART: Regular rate and rhythm, no murmur, no heave, no gallop. 7) ABDOMEN: No guarding, no rebound, no focal tenderness,, 8) MUSCULOSKELETAL: Right lower extremity: The 3 way Ortho Glass splint is wet. This is taken down by myself pain careful attention not to move his leg or foot. The foot itself has no signs of infection, no signs of frostbite or gangrene. Soft compartments. DP PT pulses present and brisk. Incisions appear well with no dehiscence no signs of infection, no trench foot 9) BACK: No CVA tenderness, no midline vertebral tenderness, no fluctuance, no step-off, no obvious trauma, no visual or palpable abnormality. 10) SKIN: No rash, no petechiae. 11) Psychiatric: Patient is oriented X 3, there is no agitation. DIFFERENTIAL DIAGNOSIS: [In no particular order including but not limited to trench foot, wet cast, bimalleolar fracture Smoking Status: Never smoked Constitutional: Initial Vital Signs Temperature (C) 36.5 C 09/03/18 16:06 Heart Rate 85 09/03/18 16:06 Respiratory Rate 16 09/03/18 16:06 Blood Pressure 127/74 H 09/03/18 16:06 O2 Sat (%) 92 09/03/18 16:06 O2 Delivery Mode Room Air Allergies/Adverse Reactions: morphine Allergy (Severe, Verified 08/31/18 21:22) Dyspnea Iodinated Contrast- Oral and IV Dye Allergy (Verified 08/31/18 21:22) pneumococcal vaccine Allergy (Verified 08/31/18 21:22) Home Medications: Medication Instructions Recorded Polyethylene Glycol 3350 [Miralax 17 gm PO DAILY pkt 08/31/18 17 gm (*)] Sennosides/Docusate Sodium 1 - 2 tab PO BID tab 08/31/18 [Senokot-S] Thiamine HCl [Vitamin B-1] 100 mg PO DAILY tab 08/31/18 Acetaminophen [Tylenol 325mg (*)] 650 mg PO Q4HRS PRN tab 09/01/18 Folic Acid [Folic Acid 1 MG (*)] 1 mg PO DAILY tab 09/01/18 Ibuprofen [Motrin (*)] 400 mg PO Q4HRS PRN tab 09/01/18 Multivitamins [Multivitamin (*)] 1 each PO DAILY tab 09/01/18 MDM/Departure - MDM Procedures: Procedure: Splint A 3 way Ortho Glass splint was applied by ER coordinate measuring machine technician. After application of the splint I returned and re-examined the patient. The splint was adequately immobilizing the joint and distal to the splint the patient's circulation and sensation were intact. Patient shows no signs of compartment syndrome. Was given orthopedic precautions. ED Course/Re-evaluation: I reviewed the patient's medical records. I spoke with the protective services case worker was similar this patient. The patient has, unfortunately, been offered multiple opportunities for rehabilitation however has left these facilities against medical advice primarily because he wants to drink alcohol. He currently states that he has no interest in returning to [facility] and declines the Orthoglass splint stating that he prefers a boot has this will be easier to walk on. I have emphasized that he should remain non weight-bearing. Have given him crutches however he refuses to use crutches , states that he will not use crutches. Subsequently he has been given a [place] boot. I informed him that because of this he may experience a malunion or long-term sequelae. He verbalized understanding of this. He he currently is clinically sober and I believe him to have decision-making capacity. Care of patient under supervision of primary supervising physician Dr Faulkner . - Depart Disposition: Home, Routine, Self-Care Clinical Impression: Bimalleolar fracture of right ankle Qualifiers: Encounter type: subsequent encounter Fracture type: closed Fracture healing: with routine healing Qualified Code(s): S82.841D - Displaced bimalleolar fracture of right lower leg, subsequent encounter for closed fracture with routine healing Condition: Good Instructions: Ankle Fracture (ED) Additional Instructions: Return to the ER immediately if you experience discoloration, have worsening pain, numbness, tingling, or any other symptoms that concern you. If you received x-rays in the emergency department today, be advised, that ligamentous , tendon, muscular, and other non-bony injury cannot be fully ruled out. Try to keep your affected extremity elevated above the level of your chest, and keep cold packs on the affected area, for the next 48 hours. Referrals: Dilip Hurley MD [Medical Doctor] - 2-3 days, call for appt.
--- NOTE | 2018-09-04 16:46 | ASMTCMCOM ---
CM Note CM Note Notes: Late Entry from 09/03/19: Pt presented to the ED via EMS because his right lower extremity cast/splint is wet. Pt is homeless and has been walking on his cast in addition to riding his bike around in the recent snow. See 08/10-08/31 & 09/01 Admission Reports, ED Report, and CM Reports for additional background info. Pt continues to be nonadherent with non-weightbearing recommendations. Pt had refused the walker offered to him by CM during his DC on 09/01/18. Pt continues to decline crutches because he states he can't carry them while he is on his bike. Pt was placed in a [place] boot due to his nonadherence w/splint instructions. Pt states he has an appt at [facility] and his follow-up appt w/Dr Mei chan/[facility] on 09/04/18. Pt states he plans on going to the appts. Pt was provided a map and info on the [facility] location being offered that night. Cabs have not been available in the evenings due to lack of cab drivers, etc. so a Medicaid cab or cab via voucher was not an option. Pt stated he would be able to ride his bike to the [facility]. This CM followed up w/PC this morning around 10:30am and they said he had an appt at 11am. Called back to see if pt made it to his appts but was unable to get through to anyone and confirm. CM Available for further assistance if needed. Date Signed: 09/04/2018 04:45 PM Electronically Signed By:Kristine Garcia RN
== END 2018-09-03 17:53 | disposition home or self-care (01) ==
LOC: EDUNIT#
DX: S82.841D Displaced bimalleolar fracture of right lower leg, subsequent encounter for closed fracture with routine healing (principal); Z59.0 Homelessness
CPT/HCPCS: L4386